=== PATIENT | male | born 1955 | race Caucasian/White ===

== ENCOUNTER 2023-02-10 09:52 | Outpatient (REF) | payer MEDICAID, SELFPAY ==
[2023-02-10 11:14] LABS: MANUAL DIFF FLAG NO
[2023-02-10 11:38] LABS: Basophils Percent Auto 0.5 % (0-2); Eosinophils Absolute Auto 0.1 X10*3/uL (0.0-0.4); Eosinophils Percent Auto 1.2 % (0-4); Hematocrit 46.1 % (42.0-52.0); Hemoglobin 14.9 g/dl (14.0-18.0); Imm Gran Abs Auto 0.02 X10*3/uL (0.00-0.03); Imm Gran Pct Auto 0.3 % (0.0-0.4); Lymphocytes Absolute Auto 1.9 X10*3/uL (1.2-4.9); Mean Corpuscular HGB Conc 32.3 g/dl (31.0-36.0); Mean Corpuscular Hemoglobin 28.1 pg (27.0-33.0); Mean Corpuscular Volume 86.8 fL (80.0-98.0); Mean Platelet Volume 11.8 fL (9.4-12.4); Monocytes Absolute Auto 0.5 X10*3/uL (0.1-1.2); Monocytes Percent Auto 7.5 % (2-11); Neutrophils Absolute Auto 4.1 x10*3/uL (2.0-8.3); Neutrophils Percent Auto 61.5 % (45-73); Platelet Count 159 X10*3/uL (160-400); Red Blood Count 5.31 X10*6/uL (4.60-5.80); Red Cell Distribution Width 14.5 % (11.0-16.0); White Blood Count 6.6 X10*3/uL (4.8-10.8)
[2023-02-10 12:30] LABS: Alanine Aminotransferase 9 U/L (0-40); Alkaline Phosphatase 127 U/L (39-117); Anion Gap 12 (12-20); Aspartate Amino Transferase 21 U/L (5-37); Bilirubin Total 0.5 mg/dL (0.0-1.0); Blood Urea Nitrogen 16 mg/dL (9-16); Carbon Dioxide 24 mmol/L (22-29); Chloride 111 mmol/L (96-108); Cholesterol 244 mg/dL; Estimated Glomerular Filt Rate > 60; Glucose Fasting 80 mg/dL (60-99); HDL Cholesterol 40 mg/dL; LDL Cholesterol Calculated 173 mg/dl; Potassium 5.5 mmol/L (3.3-5.1); Sodium 141 mmol/L (135-145); Total Protein 7.2 g/dL (6.5-8.0); Triglycerides 158 mg/dL
[2023-02-10 12:39] LABS: TSH reflex Free T4 1.45 uIU/mL (0.32-4.0)
[2023-02-20 21:09] LABS: PSA, Ultra Sensitive 1.99 ng/mL
== END 2023-02-10 09:53 | disposition home or self-care (01) ==
LOC: HO.WFDLDS 09:52
PROVIDERS: Visit Provider Nurse Practitioner Family
DX: Z00.00 Encounter for general adult medical examination without abnormal findings (principal)
CPT/HCPCS: 36415; 80053; 80061; 84153; 84443; 85025

== ENCOUNTER 2023-03-05 11:26 | Outpatient (REF) | payer MEDICAID, SELFPAY ==
[2023-03-05 14:00] LABS: Potassium 4.4 mmol/L (3.3-5.1)
== END 2023-03-05 11:27 | disposition home or self-care (01) ==
LOC: HO.WFDLDS 11:26
PROVIDERS: Visit Provider Nurse Practitioner Family
DX: E87.5 Hyperkalemia (principal)
CPT/HCPCS: 36415; 84132

== ENCOUNTER 2023-04-07 15:01 | Outpatient (AMB) | payer MEDICAID, SELFPAY ==
--- NOTE | 2023-04-07 15:02 | MHC.PC.OV ---
Vital Signs 04/07/23 15:05 Height 6 ft Weight 170 lb BMI 23.1 BP 120/70 Blood Pressure Location Lt brachial Position Sitting Pulse 99 Pulse Source Pulse Oximeter Pulse Oximetry (%) 98 Oxygen Delivery Method Room Air Intake Visit Reasons: 03/24/23 [facility], bowel obstruction Intake Note: pt is here for ED f/u from 03/24/23 [facility] for bowel obstruction Telecommunications Field Technician Required: No Allergies No Known Allergies Allergy (Verified 04/07/23 15:03) Tobacco use date assessed: 01/14/23 Fall risk assessment: No Falls in past year Last assessed Fall Risk: 04/07/23 Dental Screening Dental Screen Date: 04/07/23 Did you have a dental visit in the last 12 months?: No Did you have a dental problem in the last 6 months where you did not have access to dental care?: No Was dental information given to patient?: Patient declined HPI HPI Comments History of Present Illness Details 67-year-old male, accompained by [facility] staff, presents for follow-up visit. He was admitted at [facility] between 03/18/2023 and 03/23/2023 for nausea, vomiting, concern for small-bowel obstruction, stercoral colitis, and newly diagnosed large type 4 paraesophageal hernia. Labs were unremarkable CT abdomen and pelvis without contrast revealed the followin. Small-bowel obstruction 2. Fecal impaction/stercoral colitis 3. Small punctuate nonobstructing calculus in the left upper pole 4. Nonspecific fat stranding surrounding the bilateral adrenal glands, left greater than right 5. Surgical clip along the inferior tip of the right hepatic lobe, which may represent a dropped clip 6. Infrarenal saccular aneurysms Hospital Course: 67-year-old with history of his schizoaffective disorder a previous TIA, fusiform cerebral aneurysm, and depression who presented 03/18 with nausea and vomiting and concern for small-bowel obstruction, stercoral colitis and a new newly diagnosed large type 4 paraesophageal hernia. The patient was admitted to surgery for trial of conservative management with bowel rest and decompression. Thoracic surgery was consulted for the paraesophageal hernia who recommended no need for emergent surgery. DVT prophylaxis was maintained throughout hospital stay. Castrografin was admitted per small bowel protocol. Follow-up imaging did not initially revealed contrast within the colon but patient had return of bowel function. NG tube was discontinued and diet was advanced to clears. As bowel function continued, diet was subsequently advanced as tolerated. Was tolerating a regular diet the patient was ready for discharge home. Upon discharge, the patient was in stable clinical condition. He was voiding, and tolerating a diet without nausea or vomiting. PT evaluated the patient prior to discharge and cleared him to return to his detention. He was sent home with instructions to follow-up within 1-2 weeks with thoracic surgery and in 2-3 weeks with his primary care provider. He denies acute symptoms. He reports intermittent pain to his upper esophagus. [facility] Medical History Heart murmur Hepatitis Surgical History History of cholecystectomy Family History Mother Cardiovascular disease Father Cardiovascular disease Social History Housing: Assisted Living Facility Alcohol intake: never Patient Tobacco Use Status: Never used Tobacco e-Cigarette/Vaping Use: Never Used service: Yes Current occupational status: disabled Current occupation: [employer] Cognitive needs: Yes Hearing needs: Yes Vision needs: Yes Questionnaire Thrive Questionnaire Date Thrive assessed: 01/14/23 LYRIC-7 AMB Questionnaire LYRIC-7 Date LYRIC - 7 assessed: 01/14/23 Source: Developed by Drs. Gonzalez Guillory, Radha Godwin, Dash Barlow and colleagues, with an educational carolynn from [employer]. Review of Systems Const Details: Const Denies chills, Denies fatigue, Denies fever(s), Denies headache(s) and Denies weakness ENT Denies dizziness and Denies headache(s) Card Denies chest pain, Denies lightheadedness, Denies dyspnea and Denies other (Palpitations) Resp Denies cough, Denies dyspnea, Denies wheezing and Denies other ( shortness of breath) GI Denies abdominal pain, Denies melena, Denies hematochezia, Denies change in bowel habits, Denies dyspepsia and Denies nausea Denies hematuria and Denies dysuria Musc Denies abnormal gait, Denies myalgias, Denies arthralgias, Denies numbness and Denies tingling Skin/Breast Denies rash, Denies unusual bruising and Denies wounds Neuro Denies abnormal gait, Denies dizziness, Denies headache(s), Denies memory loss, Denies numbness, Denies Sensory deficit (Neuro), Denies tingling and Denies weakness Psych Denies anxiety and Denies depression Endo Denies fatigue Aller/Immun Denies wheezing Physical exam (Primary Care) Vital Signs: Last Vital Signs Pulse 99 04/07/23 15:05 BP 120/70 04/07/23 15:05 Pulse Ox 98 04/07/23 15:05 Oxygen Delivery Method Room Air 04/07/23 15:05 BMI result Body Mass Index 23.1 Tobacco/Smoking Status: Tobacco use Status Tobacco use date assessed 01/14/23 04/07/23 15:04 Patient Tobacco Use Status Never used Tobacco 04/07/23 15:04 e-Cigarette/Vaping Use Never Used 04/07/23 15:04 Thrive Assessment: Date of Thrive Assessment Date Thrive assessed 01/14/23 04/07/23 15:04 Const Other: General: no acute distress and well developed Nutritional Appearance: well nourished Orientation/consciousness: patient oriented x3 HENMT Head: Yes normocephalic and Yes atraumatic Eyes General: appearance normal, both eyes and all related structures Pupils: Equal, round and reactive pupils present EOM: EOMs intact bilaterally Resp Effort & Inspection: normal respiratory effort Auscultation: clear to auscultation bilaterally Cardio Rate: regular rate Rhythm: regular rhythm Heart sounds: S1 normal heart sound present, S2 normal heart sound present, no gallops, no murmurs and no rubs GI Palpation (GI): No Abdominal aortic bruit present, Soft to palpation, nontender, No hepatosplenomegaly present and No Rebound tenderness present Auscultation: normal bowel sounds General: Yes no CVA tenderness Back/Spine/Pelvis Back: no CVA tenderness Cervical Spine: cervical ROM normal and No Cervical spine tenderness Thoracic/Lumbar Spine: thoraco-lumbar ROM normal, No pain with thoraco-lumbar ROM, No thoracic spinal tenderness and No lumbar spinal tenderness Extrem General: Yes normal to inspection, No edema and No calf tenderness Skin General: warm and dry. Normal skin color. Normal skin turgor Lesions: no lesions Rashes: no rashes Trauma: no lacerations or abrasions Wounds: no wounds Nails: normal Neuro General: patient oriented x3, gait normal and no focal neuro deficit Cranial nerves: Yes Equal, round and reactive pupils present Cognition (Neuro): normal cognition Gait exam (Neuro): Normal gait present Sensory Exam: No Sensory deficit (Neuro) Psych Affect: normal affect Assessment and Plan Assessment & Plan (1) Hospital discharge follow-up: Code(s): Z09 - Encounter for follow-up examination after completed treatment for conditions other than malignant neoplasm Plan: No acute symptoms Take medications as prescribed Adequate hydration encouraged Continue to follow-up with GI and surgery as planned Follow-up with PCP as planned or return sooner with symptoms or concerns Verbalized understanding and agreed with treatment plan. Coding Level of Care Code Est Pt Level 3 (84978) Diagnoses Hospital discharge follow-up Z09 Time Spent (min) 25
[2023-04-07 15:05] VITALS: BP 120/70; PULSE 99; O2SAT 98; BMI 23.1
== END 2023-04-07 15:46 | disposition home or self-care (01) ==
PROVIDERS: PCP Nurse Practitioner Family; Visit Provider Nurse Practitioner Family
DX: Z09 Encounter for follow-up examination after completed treatment for conditions other than malignant neoplasm (principal)
CPT/HCPCS: 99213

== ENCOUNTER 2023-04-22 09:52 | Outpatient (AMB) | payer MEDICAID, SELFPAY ==
[2023-04-22 10:04] VITALS: BP 106/74; PULSE 94; RESP 12; TEMP 36.3; O2SAT 99; BMI 23.5
--- NOTE | 2023-04-22 10:04 | MHC.PC.OV ---
Vital Signs 04/22/23 10:04 Height 6 ft Weight 173 lb BMI 23.5 BP 106/74 Blood Pressure Location Rt brachial Position Sitting Respiration 12 Pulse 94 Pulse Source Pulse Oximeter Temp 97.4 F Temp Source Temporal Artery Scan Pulse Oximetry (%) 99 Oxygen Delivery Method Room Air Intake Visit Reasons: 3 mos MH disorder, labs review Wire Weaver Required: No Accompanied by: Card Brusher Allergies No Known Allergies Allergy (Verified 04/22/23 11:09) Medication List - Last Reconciled 04/22/23 by Luisana Cloud CNP clozapine 500 mg PO DIRECTED docusate sodium (Colace) 100 mg PO BID hydroxyzine HCl 50 mg PO BID oxcarbazepine (Trileptal) 150 mg PO BID polyethylene glycol 3350 (Miralax) 17 grams PO DAILY Tobacco use date assessed: 01/14/23 Fall risk assessment: 1 Fall in past year Last assessed Fall Risk: 04/22/23 Dental Screening Dental Screen Date: 04/22/23 Did you have a dental visit in the last 12 months?: No Did you have a dental problem in the last 6 months where you did not have access to dental care?: No Was dental information given to patient?: Yes HPI HPI Comments History of Present Illness Details 67-year-old male presents with [facility] manager case management for mood disorder and recent lab reviews follow-up. He has PMH significant for schizophrenia, bipolar, anxiety, depression, and constipation. He admits to taking his medications as prescribed. He is followed by Dr. Abebe, psychiatrist who manages all of his medications. He sees his psychiatrist every 2 moths. He notes she is not currently followed by a therapist and requests a referral to establish care. He notes he was told by [facility] that he has an hatial hernia that may be the cause of his chronic constipation. He states he was told he requires surgery to reduce the hernia. He was referred to [facility] GI. He notes that he has been having regular BM for the past 2 weeks. No acute symptoms today. [facility] Medical History (Updated 04/22/23 @ 11:14 by Luisana Cloud CNP) Heart murmur Hepatitis Hiatal hernia Surgical History History of cholecystectomy Family History Mother Cardiovascular disease Father Cardiovascular disease Other Mental health disorder Substance abuse Social History Housing: Assisted Living Facility Alcohol intake: never Patient Tobacco Use Status: Former Tobacco user Tobacco use type: Cigarette e-Cigarette/Vaping Use: Never Used service: Yes Current occupational status: disabled Current occupation: [employer] Cognitive needs: Yes Hearing needs: Yes Vision needs: Yes Questionnaire PHQ-9 Over the last 2 weeks, how often have you been bothered by any of the following problems? 1. Little interest or pleasure in doing things: not at all 2. Feeling down, depressed, or hopeless: several days 3. Trouble falling or staying asleep, or sleeping too much: several days 4. Feeling tired or having little energy: not at all 5. Poor appetite or overeating: not at all 6. Feeling bad about yourself - or that you are a failure or have let yourself or your family down: more than half the days 7. Trouble concentrating on things, such as reading the newspaper or watching television: not at all 8. Moving or speaking so slowly that other people could have noticed. Or the opposite - being so fidgety or restless that you have been moving around a lot more than usual: not at all 9. Thoughts that you would be better off or of hurting yourself in some way: not at all Total score: 4 Depression Screening Interpretation: Negative Source: Developed by Drs. Gonzalez Guillory, Radha Godwin, Dash Barlow and colleagues, with an educational carolynn from [employer]. Thrive Questionnaire Date Thrive assessed: 04/22/23 I am a: Patient What is your living situation today?: I have a steady place to live Within the past 12 months, did the food you bought not last and you didn't have the money to get more?: Never true Within the past 12 months, did you worry whether your food would run out before you got money to buy more?: Never true Do you have trouble paying for medicines?: No Do you have trouble getting transportation to medical appointments?: No Do you have trouble paying your heating and electricity bill?: No Do you have trouble taking care of your child, family member or friend?: No Do you have trouble with day-to-day activities such as bathing, preparing meals, shopping, managing finances, etc.?: No Are you currently unemployed and looking for a job?: No Are you interested in more education?: No Please select the resources that you would like help with: None Currently or been in a relationship where the following occur: no concerns reported LYRIC-7 AMB Questionnaire LYRIC-7 Date LYRIC - 7 assessed: 04/22/23 Feeling nervous, anxious, or on edge: 1 = Several days Not being able to stop or control worryin = More than half the days Worrying too much about different things: 2 = More than half the days Trouble relaxin = More than half the days Being so restless that it is hard to sit still: 2 = More than half the days Becoming easily annoyed or irritable: 1 = Several days Feeling afraid as if something awful might happen: 1 = Several days Total LYRIC-7 score (0-4 normal; 5-9 mild; 10-14 moderate; 15-21 severe): 11 Source: Developed by Drs. Gonzalez Guillory, Radha Godwin, Dash Barlow and colleagues, with an educational carolynn from [employer]. Review of Systems Const Details: Const Denies chills, Denies fatigue, Denies fever(s), Denies headache(s) and Denies weakness ENT Denies dizziness and Denies headache(s) Card Denies chest pain, Denies lightheadedness, Denies dyspnea and Denies other (Palpitations) Resp Denies cough, Denies dyspnea, Denies wheezing and Denies other ( shortness of breath) GI Denies abdominal pain, Denies melena, Denies hematochezia, Denies change in bowel habits, Denies dyspepsia and Denies nausea Denies hematuria and Denies dysuria Musc Denies abnormal gait, Denies myalgias, Denies arthralgias, Denies numbness and Denies tingling Skin/Breast Denies rash, Denies unusual bruising and Denies wounds Neuro Denies abnormal gait, Denies dizziness, Denies headache(s), Denies memory loss, Denies numbness, Denies Sensory deficit (Neuro), Denies tingling and Denies weakness Psych Denies anxiety, Denies depression, Denies memory loss Endo Denies cold intolerance, Denies fatigue, Denies heat intolerance, Denies polydipsia and Denies polyuria Aller/Immun Denies wheezing Physical exam (Primary Care) Vital Signs: Last Vital Signs Temp 97.4 F 04/22/23 10:04 Pulse 94 04/22/23 10:04 Resp 12 04/22/23 10:04 BP 106/74 04/22/23 10:04 Pulse Ox 99 04/22/23 10:04 Oxygen Delivery Method Room Air 04/22/23 10:04 BMI result Body Mass Index 23.5 Tobacco/Smoking Status: Tobacco use Status Tobacco use date assessed 01/14/23 04/22/23 10:21 Patient Tobacco Use Status Former Tobacco user 04/22/23 10:21 Tobacco use type Cigarette 04/22/23 10:21 e-Cigarette/Vaping Use Never Used 04/22/23 10:21 PHQ-9: PHQ-9 Score PHQ-9: Total score 4 04/22/23 10:21 Depression Screening Interpretation: Negative Thrive Assessment: Date of Thrive Assessment Date Thrive assessed 04/22/23 04/22/23 10:21 Currently or been in a relationship where the following occur: no concerns reported Const Other: General: no acute distress and well developed Nutritional Appearance: well nourished Orientation/consciousness: patient oriented x3 HENMT Head: Yes normocephalic and Yes atraumatic Eyes General: appearance normal, both eyes and all related structures Pupils: Equal, round and reactive pupils present EOM: EOMs intact bilaterally Resp Effort & Inspection: normal respiratory effort Auscultation: clear to auscultation bilaterally Cardio Rate: regular rate Rhythm: regular rhythm Heart sounds: S1 normal heart sound present, S2 normal heart sound present, no gallops, no murmurs and no rubs GI Palpation (GI): No Abdominal aortic bruit present, Soft to palpation, nontender, No hepatosplenomegaly present and No Rebound tenderness present Auscultation: normal bowel sounds General: Yes no CVA tenderness Back/Spine/Pelvis Back: no CVA tenderness Cervical Spine: cervical ROM normal and No Cervical spine tenderness Thoracic/Lumbar Spine: thoraco-lumbar ROM normal, No pain with thoraco-lumbar ROM, No thoracic spinal tenderness and No lumbar spinal tenderness Extrem General: Yes normal to inspection, No edema and No calf tenderness Skin General: warm and dry. Normal skin color. Normal skin turgor Lesions: no lesions Rashes: no rashes Trauma: no lacerations or abrasions Wounds: no wounds Nails: normal Neuro General: patient oriented x3, gait normal and no focal neuro deficit Cranial nerves: Yes Equal, round and reactive pupils present Cognition (Neuro): normal cognition Gait exam (Neuro): Normal gait present Sensory Exam: No Sensory deficit (Neuro) Psych Appearance: grossly normal Affect: normal affect Attitude: cooperative Thought process: Normal thought process present Assessment and Plan Assessment & Plan (1) Anxiety: Code(s): F41.9 - Anxiety disorder, unspecified Plan: PHQ-9 score is normal, LYRIC-7 score revealed moderate anxiety Continue with current treatment regimen Continue to follow up with psychiatrist as planned He met with the community navigator who provided resources to help him connect to a therapist Follow-up in 4 months or return sooner with new or worsening symptoms Verbalized understanding and agreed with treatment plan (2) Depression: Code(s): F32.A - Depression, unspecified Plan: As above (3) Schizoaffective disorder: Code(s): F25.9 - Schizoaffective disorder, unspecified Qualifiers: Schizoaffective disorder type: bipolar Qualified Code(s): F25.0 - Schizoaffective disorder, bipolar type Plan: As above (4) Hyperlipidemia: Code(s): E78.5 - Hyperlipidemia, unspecified Plan: Recent lab results reviewed with the patient Slight elevation and triglyceride, total cholesterol, and LDL. HDL is normal Advised to limit foods high in saturated fat and avoid foods high trans fat Routine exercise encouraged Verbalized understanding and agreed with treatment plan. Coding Level of Care Code Est Pt Level 3 (72904) Diagnoses Anxiety F41.9 Depression F32.A Schizoaffective disorder F25.0 Schizoaffective disorder type: bipolar Hyperlipidemia E78.5 Time Spent (min) 25
== END 2023-04-22 11:23 | disposition home or self-care (01) ==
PROVIDERS: Visit Provider Nurse Practitioner Family
DX: F41.9 Anxiety disorder, unspecified (principal); F32.A Depression, unspecified; F25.0 Schizoaffective disorder, bipolar type; E78.5 Hyperlipidemia, unspecified
CPT/HCPCS: 99213

== ENCOUNTER 2023-05-14 11:52 | Outpatient (AMB) | payer MEDICAID, SELFPAY ==
--- NOTE | 2023-05-14 11:55 | MHC.PC.OV ---
Vital Signs 05/14/23 11:56 Height 6 ft Weight 178 lb BMI 24.1 BP 114/64 Blood Pressure Location Rt brachial Position Sitting Respiration 12 Pulse 101 H Pulse Source Pulse Oximeter Temp 97.8 F Temp Source Temporal Artery Scan Pulse Oximetry (%) 99 Oxygen Delivery Method Room Air Intake Visit Reasons: Medication/Bowel Management Intake Note: therapeutic program worker states that this appointment was scheduled to to patient stating he hadn't had a bowel movement but since appointment patient has had bowel movements. therapeutic program worker is unsure if patient needs anything to take for moments when he cannot pass a bowel movement and is looking for opinion on if he should have one prescribed. Manager Architecture Required: No Accompanied by: marriage and family social worker Allergies No Known Allergies Allergy (Verified 05/14/23 12:34) Medication List - Last Reconciled 05/14/23 by Luisana Cloud CNP clozapine 500 mg PO DIRECTED docusate sodium (Colace) 100 mg PO BID hydroxyzine HCl 50 mg PO BID oxcarbazepine (Trileptal) 150 mg PO BID polyethylene glycol 3350 (Miralax) 17 grams PO DAILY Tobacco use date assessed: 01/14/23 Fall risk assessment: No Falls in past year Last assessed Fall Risk: 05/14/23 Dental Screening Dental Screen Date: 05/14/23 Did you have a dental visit in the last 12 months?: No Did you have a dental problem in the last 6 months where you did not have access to dental care?: No Was dental information given to patient?: Yes HPI HPI Comments History of Present Illness Details 67-year-old male presents with [facility] rehabilitation case coordinator for an appointment that was scheduled for lack of bowel movement. He has since been having regular bowel movements. He was seen 3 weeks ago and reports regular bowel movements for the past 2 weeks. He notes he has been having regular bowel movements for the past 4-5 weeks. He denies hard stools or straining with defecation. He is followed by [facility] and notes he has an appointment at the end of this month. [facility] Medical History Hiatal hernia Heart murmur Hepatitis Surgical History History of cholecystectomy Family History (Updated 05/14/23 @ 12:06 by Martine Hardin MA) Mother Cardiovascular disease Father Cardiovascular disease Brother No problems noted. Other Mental health disorder Substance abuse Social History Housing: Assisted Living Facility Alcohol intake: never Patient Tobacco Use Status: Former Tobacco user Tobacco use type: Cigarette e-Cigarette/Vaping Use: Never Used service: Yes Current occupational status: disabled Current occupation: [employer] Cognitive needs: No Hearing needs: No Vision needs: No Questionnaire Thrive Questionnaire Date Thrive assessed: 04/22/23 LYRIC-7 AMB Questionnaire LYRIC-7 Date LYRIC - 7 assessed: 04/22/23 Source: Developed by Drs. Gonzalez Guillory, Radha Godwin, Dash Barlow and colleagues, with an educational carolynn from [employer]. Review of Systems Const Details: Const Denies chills, Denies fatigue, Denies fever(s), Denies headache(s) and Denies weakness ENT Denies dizziness and Denies headache(s) Card Denies chest pain, Denies lightheadedness, Denies dyspnea and Denies other (Palpitations) Resp Denies cough, Denies dyspnea, Denies wheezing and Denies other ( shortness of breath) GI Denies abdominal pain, Denies melena, Denies hematochezia, Denies change in bowel habits, Denies dyspepsia and Denies nausea Denies hematuria and Denies dysuria Musc Denies abnormal gait, Denies myalgias, Denies arthralgias, Denies numbness and Denies tingling Skin/Breast Denies rash, Denies unusual bruising and Denies wounds Neuro Denies abnormal gait, Denies dizziness, Denies headache(s), Denies memory loss, Denies numbness, Denies Sensory deficit (Neuro), Denies tingling and Denies weakness Psych Denies anxiety, Denies depression, Denies memory loss Endo Denies cold intolerance, Denies fatigue, Denies heat intolerance, Denies polydipsia and Denies polyuria Aller/Immun Denies wheezing Physical exam (Primary Care) Vital Signs: Last Vital Signs Temp 97.8 F 05/14/23 11:56 Pulse 101 H 05/14/23 11:56 Resp 12 05/14/23 11:56 BP 114/64 05/14/23 11:56 Pulse Ox 99 05/14/23 11:56 Oxygen Delivery Method Room Air 05/14/23 11:56 BMI result Body Mass Index 24.1 Tobacco/Smoking Status: Tobacco use Status Tobacco use date assessed 01/14/23 05/14/23 12:04 Patient Tobacco Use Status Former Tobacco user 05/14/23 12:04 Tobacco use type Cigarette 05/14/23 12:04 e-Cigarette/Vaping Use Never Used 05/14/23 12:04 Thrive Assessment: Date of Thrive Assessment Date Thrive assessed 04/22/23 05/14/23 12:04 Const Other: General: no acute distress and well developed Nutritional Appearance: well nourished Orientation/consciousness: patient oriented x3 HENMT Head: Yes normocephalic and Yes atraumatic Eyes General: appearance normal, both eyes and all related structures Pupils: Equal, round and reactive pupils present EOM: EOMs intact bilaterally Resp Effort & Inspection: normal respiratory effort Auscultation: clear to auscultation bilaterally Cardio Rate: regular rate Rhythm: regular rhythm Heart sounds: S1 normal heart sound present, S2 normal heart sound present, no gallops, no murmurs and no rubs GI Palpation (GI): No Abdominal aortic bruit present, Soft to palpation, nontender, No hepatosplenomegaly present and No Rebound tenderness present Auscultation: normal bowel sounds General: Yes no CVA tenderness Back/Spine/Pelvis Back: no CVA tenderness Cervical Spine: cervical ROM normal and No Cervical spine tenderness Thoracic/Lumbar Spine: thoraco-lumbar ROM normal, No pain with thoraco-lumbar ROM, No thoracic spinal tenderness and No lumbar spinal tenderness Extrem General: Yes normal to inspection, No edema and No calf tenderness Skin General: warm and dry. Normal skin color. Normal skin turgor Lesions: no lesions Rashes: no rashes Trauma: no lacerations or abrasions Wounds: no wounds Nails: normal Neuro General: patient oriented x3, gait normal and no focal neuro deficit Cranial nerves: Yes Equal, round and reactive pupils present Cognition (Neuro): normal cognition Gait exam (Neuro): Normal gait present Sensory Exam: No Sensory deficit (Neuro) Psych Appearance: grossly normal Affect: normal affect Attitude: cooperative Thought process: Normal thought process present Assessment and Plan Assessment & Plan (1) Constipation: Code(s): K59.00 - Constipation, unspecified Qualifiers: Constipation type: other constipation type Qualified Code(s): K59.09 - Other constipation Plan: Resolved Adequate hydration encouraged Advised to include fruits and vegetables in his diet Continue with current bowel regimen Follow-up with GI and PCP as planned Verbalized understanding and agreed with treatment plan. Coding Level of Care Code Est Pt Level 2 (67336) Diagnoses Other constipation K59.09 Constipation type: other constipation type
[2023-05-14 11:56] VITALS: BP 114/64; PULSE 101; RESP 12; TEMP 36.6; O2SAT 99; BMI 24.1
== END 2023-05-14 13:33 | disposition home or self-care (01) ==
PROVIDERS: PCP Nurse Practitioner Family; Visit Provider Nurse Practitioner Family
DX: K59.09 Other constipation (principal)
CPT/HCPCS: 99212

== ENCOUNTER 2023-09-09 11:11 | Outpatient (AMB) | payer MEDICAID, SELFPAY ==
[2023-09-09 11:13] VITALS: BP 130/84; PULSE 72; RESP 13; TEMP 36.4; O2SAT 98; BMI 23.3
--- NOTE | 2023-09-09 11:13 | MHC.PC.OV ---
Vital Signs 09/09/23 11:13 Height 6 ft Weight 171 lb 8 oz BMI 23.3 BP 130/84 Blood Pressure Location Rt brachial Position Sitting Respiration 13 Pulse 72 Pulse Source Pulse Oximeter Temp 97.6 F Temp Source Temporal Artery Scan Pulse Oximetry (%) 98 Oxygen Delivery Method Room Air Intake Visit Reasons: bilateral leg/foot swelling Intake Note: Patient states hes been experiencing the swelling for about a month. Color Laboratory Technician Required: No Accompanied by: Self / Same As Patient Allergies No Known Allergies Allergy (Verified 09/09/23 11:32) Medication List - Last Reconciled 09/09/23 by Luisana Cloud CNP clozapine 500 mg PO DIRECTED docusate sodium (Colace) 100 mg PO BID hydroxyzine HCl 50 mg PO BID oxcarbazepine (Trileptal) 150 mg PO BID polyethylene glycol 3350 (Miralax) 17 grams PO DAILY Tobacco use date assessed: 01/14/23 Last assessed Fall Risk: 09/09/23 Dental Screening Dental Screen Date: 09/09/23 Did you have a dental visit in the last 12 months?: No Did you have a dental problem in the last 6 months where you did not have access to dental care?: No Was dental information given to patient?: Yes HPI HPI Comments History of Present Illness Details 68-year-old male presents with complaints of swelling to both lower legs and feet. He notes the swelling has been present for the past 6 weeks. He noticed the swelling shortly after he started taking Trileptal. He has not taking Trileptal for the past 2 weeks due to concerns that the medication may be the cause of his swelling. He admits to consuming significant amount of salt. He notes that he walks a mile and half daily. No shortness of breath, chest pain, or dizziness/lightheadedness. He lives in a chcf and came by self today [facility] Medical History Heart murmur Hepatitis Surgical History H/O hernia repair History of cholecystectomy Family History Mother Cardiovascular disease Father Cardiovascular disease Brother No problems noted. Other Mental health disorder Substance abuse Social History Housing: Assisted Living Facility Alcohol intake: never Patient Tobacco Use Status: Former Tobacco user Tobacco use type: Cigarette e-Cigarette/Vaping Use: Never Used service: Yes Current occupational status: disabled Current occupation: [employer] Cognitive needs: No Hearing needs: No Vision needs: No Questionnaire Thrive Questionnaire Date Thrive assessed: 04/22/23 LYRIC-7 AMB Questionnaire LYRIC-7 Date LYRIC - 7 assessed: 04/22/23 Source: Developed by Drs. Gonzalez Guillory, Radha Godwin, Dash Barlow and colleagues, with an educational carolynn from [employer]. Review of Systems Const Details: Const Denies chills, Denies fatigue, Denies fever(s), Denies headache(s) and Denies weakness ENT Denies dizziness and Denies headache(s) Card Denies chest pain, Denies lightheadedness, Denies dyspnea and Denies other (Palpitations) Resp Denies cough, Denies dyspnea, Denies wheezing and Denies other ( shortness of breath) GI Denies abdominal pain, Denies melena, Denies hematochezia, Denies change in bowel habits, Denies dyspepsia and Denies nausea Denies hematuria and Denies dysuria Musc Denies abnormal gait, Denies myalgias, Denies arthralgias, Denies numbness and Denies tingling Skin/Breast Reports as per HPI Neuro Denies abnormal gait, Denies dizziness, Denies headache(s), Denies memory loss, Denies numbness, Denies Sensory deficit (Neuro), Denies tingling and Denies weakness Psych Denies anxiety, Denies depression, Denies memory loss Endo Denies cold intolerance, Denies fatigue, Denies heat intolerance, Denies polydipsia and Denies polyuria Aller/Immun Denies wheezing Physical exam (Primary Care) Vital Signs: Last Vital Signs Temp 97.6 F 09/09/23 11:13 Pulse 72 09/09/23 11:13 Resp 13 09/09/23 11:13 BP 130/84 09/09/23 11:13 Pulse Ox 98 09/09/23 11:13 Oxygen Delivery Method Room Air 09/09/23 11:13 BMI result Body Mass Index 23.3 Tobacco/Smoking Status: Tobacco use Status Tobacco use date assessed 01/14/23 09/09/23 11:23 Patient Tobacco Use Status Former Tobacco user 09/09/23 11:23 Tobacco use type Cigarette 09/09/23 11:23 e-Cigarette/Vaping Use Never Used 09/09/23 11:23 Thrive Assessment: Date of Thrive Assessment Date Thrive assessed 04/22/23 09/09/23 11:23 Const Other: General: no acute distress and well developed Nutritional Appearance: well nourished Orientation/consciousness: patient oriented x3 HENMT Head: Yes normocephalic and Yes atraumatic Eyes General: appearance normal, both eyes and all related structures Pupils: Equal, round and reactive pupils present EOM: EOMs intact bilaterally Resp Effort & Inspection: normal respiratory effort Auscultation: clear to auscultation bilaterally Cardio Rate: regular rate Rhythm: regular rhythm Heart sounds: S1 normal heart sound present, S2 normal heart sound present, no gallops, no murmurs and no rubs GI Palpation (GI): No Abdominal aortic bruit present, Soft to palpation, nontender, No hepatosplenomegaly present and No Rebound tenderness present Auscultation: normal bowel sounds General: Yes no CVA tenderness Back/Spine/Pelvis Back: no CVA tenderness Cervical Spine: cervical ROM normal and No Cervical spine tenderness Thoracic/Lumbar Spine: thoraco-lumbar ROM normal, No pain with thoraco-lumbar ROM, No thoracic spinal tenderness and No lumbar spinal tenderness Extrem General: Yes normal to inspection, No edema and No calf tenderness 1+ edema noted to both lower extremities, from calves to feet, no erythema or overt trauma/injury, + DP/PT pulses, CMS WNL Skin General: warm and dry. Normal skin color. Normal skin turgor Lesions: no lesions Rashes: no rashes Trauma: no lacerations or abrasions Wounds: no wounds Nails: normal Neuro General: patient oriented x3, gait normal and no focal neuro deficit Cranial nerves: Yes Equal, round and reactive pupils present Cognition (Neuro): normal cognition Gait exam (Neuro): Normal gait present Sensory Exam: No Sensory deficit (Neuro) Psych Appearance: grossly normal Affect: normal affect Attitude: cooperative Thought process: Normal thought process present Assessment and Plan Assessment & Plan (1) Bilateral lower extremity edema: Code(s): R60.0 - Localized edema Plan: Six weeks of swelling to both lower legs 1+ edema noted to both lower extremities, from calves to feet, no erythema or overt trauma/injury, + DP/PT pulses, CMS WNL Likely due to prolonged standing/walking Kidney disease or peripheral vascular disease also possible Labs ordered. Will review results and make changes as needed Low-sodium diet encouraged Advised to talk to his psychiatrist regarding restarting Trileptal Advised to avoid prolonged standing and to elevate his bilateral lower extremity to reduce swelling Encouraged to get fasting lipid panel blood work done before his next visit Follow-up in 2 weeks for bilateral lower extremity edema and hyperlipidemia or return sooner with worsening or new signs and symptoms Verbalized understanding and agreed with treatment plan Orders: Orders Lipid Panel 2 Weeks E78.5 - Hyperlipidemia, unspecified Basic Metabolic Panel Today R60.0 - Localized edema Complete Blood Count no Diff Today R60.0 - Localized edema Coding Level of Care Code Est Pt Level 3 (12430) Diagnoses Bilateral lower extremity edema R60.0
== END 2023-09-09 12:44 | disposition home or self-care (01) ==
PROVIDERS: PCP Nurse Practitioner Family; Visit Provider Nurse Practitioner Family
DX: R60.0 Localized edema (principal)
CPT/HCPCS: 99213

== ENCOUNTER 2023-09-09 11:57 | Outpatient (REF) | payer MEDICAID, SELFPAY | END 2023-09-09 11:58 | disposition home or self-care (01) | LOC: HO.WFDLDS 11:57 | PROVIDERS: Visit Provider Nurse Practitioner Family | DX: R60.0 Localized edema (principal) | CPT/HCPCS: 36415; 80048; 85027 ==

== ENCOUNTER 2023-09-22 10:27 | Outpatient (AMB) | payer MEDICAID, SELFPAY ==
--- NOTE | 2023-09-22 10:28 | A.OFFPC_ITS ---
Vital Signs 09/22/23 10:29 Height 6 ft Weight 166 lb 4 oz BMI 22.5 BP 118/66 Blood Pressure Location Rt brachial Position Sitting Respiration 13 Pulse 68 Pulse Source Pulse Oximeter Temp 97.8 F Temp Source Temporal Artery Scan Pulse Oximetry (%) 99 Oxygen Delivery Method Room Air Intake Visit Reasons: 2 wks BLE edema, HLD Chain Mender Required: No Accompanied by: Photography Colorist Allergies No Known Allergies Allergy (Verified 09/22/23 10:53) Medication List - Last Reconciled 09/22/23 by Luisana Cloud CNP docusate sodium (Colace) 100 mg PO BID hydroxyzine HCl 50 mg PO BID oxcarbazepine (Trileptal) 150 mg PO BID polyethylene glycol 3350 (Miralax) 17 grams PO DAILY psyllium husk (Metamucil) 17 grams PO DAILY quetiapine 200 mg PO DAILY Tobacco use date assessed: 01/14/23 Fall risk assessment: No Falls in past year Last assessed Fall Risk: 09/22/23 Dental Screening Dental Screen Date: 09/22/23 Did you have a dental visit in the last 12 months?: No Did you have a dental problem in the last 6 months where you did not have access to dental care?: No Was dental information given to patient?: Patient has dentist HPI HPI Comments History of Present Illness Details 68-year-old male, accompanied by group h [facility] staff, presents for bilaterally lower extremity and hyperlipidemia follow-up He admits to taking his medications as prescribed without adverse reactions He notes that he has been consuming low-salt diet and avoiding prolonged standing and tight fitted socks He states that the swelling to his ankles and feet has resolved He offers no complaints and denies acute symptoms at this time Recent labs revealed normal kidney functions Recent RBC and H&H were slightly low, 4.38 and 12.4/37.9 respectively He did not get lipid panel blood work done [facility] Medical History Heart murmur Hepatitis Surgical History H/O hernia repair History of cholecystectomy Family History Mother Cardiovascular disease Father Cardiovascular disease Brother No problems noted. Other Mental health disorder Substance abuse Social History Housing: Assisted Living Facility Alcohol intake: never Patient Tobacco Use Status: Former Tobacco user Tobacco use type: Cigarette e-Cigarette/Vaping Use: Never Used service: Yes Current occupational status: disabled Current occupation: [employer] Cognitive needs: No Hearing needs: No Vision needs: No Questionnaire Thrive Questionnaire Date Thrive assessed: 04/22/23 LYRIC-7 AMB Questionnaire LYRIC-7 Date LYRIC - 7 assessed: 04/22/23 Source: Developed by Drs. Gonzalez Guillory, Radha Godwin, Dash Barlow and colleagues, with an educational carolynn from [employer]. Review of Systems Const Details: Const Denies chills, Denies fatigue, Denies fever(s), Denies headache(s) and Denies weakness ENT Denies dizziness and Denies headache(s) Card Denies chest pain, Denies lightheadedness, Denies dyspnea and Denies other (Palpitations) Resp Denies cough, Denies dyspnea, Denies wheezing and Denies other ( shortness of breath) GI Denies abdominal pain, Denies melena, Denies hematochezia, Denies change in bowel habits, Denies dyspepsia and Denies nausea Denies hematuria and Denies dysuria Musc Denies abnormal gait, Denies myalgias, Denies arthralgias, Denies numbness and Denies tingling Skin/Breast Denies rash, Denies unusual bruising and Denies wounds Neuro Denies abnormal gait, Denies dizziness, Denies headache(s), Denies memory loss, Denies numbness, Denies Sensory deficit (Neuro), Denies tingling and Denies weakness Psych Denies anxiety, Denies depression, Denies memory loss Endo Denies cold intolerance, Denies fatigue, Denies heat intolerance, Denies polydipsia and Denies polyuria Aller/Immun Denies wheezing Physical exam (Primary Care) Vital Signs: Last Vital Signs Temp 97.8 F 09/22/23 10:29 Pulse 68 09/22/23 10:29 Resp 13 09/22/23 10:29 BP 118/66 09/22/23 10:29 Pulse Ox 99 09/22/23 10:29 Oxygen Delivery Method Room Air 09/22/23 10:29 BMI result Body Mass Index 22.5 Tobacco/Smoking Status: Tobacco use Status Tobacco use date assessed 01/14/23 09/22/23 10:40 Patient Tobacco Use Status Former Tobacco user 09/22/23 10:40 Tobacco use type Cigarette 09/22/23 10:40 e-Cigarette/Vaping Use Never Used 09/22/23 10:40 Thrive Assessment: Date of Thrive Assessment Date Thrive assessed 04/22/23 09/22/23 10:40 Const Other: General: no acute distress and well developed Nutritional Appearance: well nourished Orientation/consciousness: patient oriented x3 HENMT Head: Yes normocephalic and Yes atraumatic Eyes General: appearance normal, both eyes and all related structures Pupils: Equal, round and reactive pupils present EOM: EOMs intact bilaterally Resp Effort & Inspection: normal respiratory effort Auscultation: clear to auscultation bilaterally Cardio Rate: regular rate Rhythm: regular rhythm Heart sounds: S1 normal heart sound present, S2 normal heart sound present, no gallops, no murmurs and no rubs GI Palpation (GI): No Abdominal aortic bruit present, Soft to palpation, nontender, No hepatosplenomegaly present and No Rebound tenderness present Auscultation: normal bowel sounds General: Yes no CVA tenderness Back/Spine/Pelvis Back: no CVA tenderness Cervical Spine: cervical ROM normal and No Cervical spine tenderness Thoracic/Lumbar Spine: thoraco-lumbar ROM normal, No pain with thoraco-lumbar ROM, No thoracic spinal tenderness and No lumbar spinal tenderness Extrem General: Yes normal to inspection, No edema and No calf tenderness Skin General: warm and dry. Normal skin color. Normal skin turgor Neuro General: patient oriented x3, gait normal and no focal neuro deficit Cranial nerves: Yes Equal, round and reactive pupils present Cognition (Neuro): normal cognition Gait exam (Neuro): Normal gait present Sensory Exam: No Sensory deficit (Neuro) Psych Appearance: grossly normal Affect: normal affect Attitude: cooperative Thought process: Normal thought process present Assessment and Plan Assessment & Plan (1) Bilateral lower extremity edema: Code(s): R60.0 - Localized edema Plan: Resolved Recent labs reviewed with the patient Normal kidney functions Low-sodium diet encouraged Continue to avoid prolonged standing and tight fitted socks Elevate bilateral lower extremity if swollen Return with signs/symptoms or concerns Verbalized understanding and agreed with the plan (2) Mild anemia: Code(s): D64.9 - Anemia, unspecified Plan: Recent RBC and H&H are slightly low, 4.38 and 12.4/37.9 respectively. MCV is normal Will recheck CBC and make changes as needed Follow-up in 2-4 weeks or return sooner with symptoms or concerns Verbalized understanding and agreed with the plan (3) Hyperlipidemia: Code(s): E78.5 - Hyperlipidemia, unspecified Plan: He has not gotten his lipid panel blood work done He is fasting and plans on getting blood work done today Advised to get blood work done and follow-up in 2-4 weeks Verbalized understanding and agreed with treatment plan Orders: Orders Complete Blood Count no Diff Today D64.9 - Anemia, unspecified Coding Level of Care Code Est Pt Level 3 (22154) Diagnoses Bilateral lower extremity edema R60.0 Mild anemia D64.9 Hyperlipidemia E78.5
[2023-09-22 10:29] VITALS: BP 118/66; PULSE 68; RESP 13; TEMP 36.6; O2SAT 99; BMI 22.5
== END 2023-09-22 11:09 | disposition home or self-care (01) ==
PROVIDERS: PCP Nurse Practitioner Family; Visit Provider Nurse Practitioner Family
DX: R60.0 Localized edema (principal); D64.9 Anemia, unspecified; E78.5 Hyperlipidemia, unspecified
CPT/HCPCS: 99213

== ENCOUNTER 2023-09-22 11:13 | Outpatient (REF) | payer MEDICAID, SELFPAY ==
[2023-09-22 14:49] LABS: Hematocrit 39.5 % (42.0-52.0); Mean Corpuscular HGB Conc 32.9 g/dl (31.0-36.0); Mean Corpuscular Volume 88.2 fL (80.0-98.0); Mean Platelet Volume 11.6 fL (9.4-12.4); Platelet Count 170 X10*3/uL (160-400); Red Blood Count 4.48 X10*6/uL (4.60-5.80)
[2023-09-22 15:14] LABS: Cholesterol 204 mg/dL (<200); HDL Cholesterol 45 mg/dL (>40); LDL Cholesterol Calculated 143 mg/dL (<100); Triglycerides 81 mg/dL (<150)
== END 2023-09-22 11:14 | disposition home or self-care (01) ==
LOC: HO.WFDLDS 11:13
PROVIDERS: Visit Provider Nurse Practitioner Family
DX: E78.5 Hyperlipidemia, unspecified (principal); D64.9 Anemia, unspecified
CPT/HCPCS: 36415; 80061; 85027

== ENCOUNTER 2024-01-29 11:16 | Outpatient (AMB) | payer MEDICAID, SELFPAY ==
[2024-01-29 11:24] VITALS: BP 122/74; PULSE 62; RESP 14; TEMP 36.6; O2SAT 99; BMI 22.4
--- NOTE | 2024-01-29 11:24 | A.OFFPC_ITS ---
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 Accompanied by: Self / Same As Patient Allergies No Known Allergies Allergy (Verified 01/29/24 11:45) Medication List - Last Reconciled 01/29/24 by Luisana Cloud CNP docusate sodium (Colace) 100 mg PO BID hydroxyzine HCl 50 mg PO BID oxcarbazepine (Trileptal) 150 mg PO BID polyethylene glycol 3350 (Miralax) 17 grams PO DAILY psyllium husk (Metamucil) 17 grams PO DAILY quetiapine 200 mg PO DAILY Tobacco use date assessed: 01/29/24 Fall risk assessment: No Falls in past year Last assessed Fall Risk: 01/29/24 Dental Screening Dental Screen Date: 09/22/23 HPI HPI Comments History of Present Illness Details 68-year-old male presents for mild anemi a and hyperlipidemia follow-up. He lives in a residential. He he is accompanied by a aids social worker who stayed in the waiting room He admits to taking his medications as prescribed without adverse reactions He offers no complaints and denies acute symptoms at this time He was admitted at [facility] on 09/30/2023 and discharged on 01/20/2024 due to SI/HI. He currently denies SI/HI. He notes that he has not seen his psychiatrist in a few months and does not know when he is seeing her next FOR[facility]LY [facility], [facility] Medical History Heart murmur Hepatitis Surgical History H/O hernia repair History of cholecystectomy Family History Mother Cardiovascular disease Father Cardiovascular disease Brother No problems noted. Other Mental health disorder Substance abuse Social History Housing: Assisted Living Facility Alcohol intake: never Patient Tobacco Use Status: Former Tobacco user Tobacco use type: Cigarette e-Cigarette/Vaping Use: Never Used service: Yes Current occupational status: disabled Current occupation: [employer] Cognitive needs: No Hearing needs: Yes Vision needs: No Questionnaire Thrive Questionnaire Date Thrive assessed: 04/22/23 LYRIC-7 AMB Questionnaire LYRIC-7 Date LYRIC - 7 assessed: 04/22/23 Source: Developed by Drs. Gonzalez Guillory, Radha Godwin, Dash Barlow and colleagues, with an educational carolynn from [employer]. Review of Systems Const Details: Const Denies chills, Denies fatigue, Denies fever(s), Denies headache(s) and Denies weakness ENT Denies dizziness and Denies headache(s) Card Denies chest pain, Denies lightheadedness, Denies dyspnea and Denies other (Palpitations) Resp Denies cough, Denies dyspnea, Denies wheezing and Denies other ( shortness of breath) GI Denies abdominal pain, Denies melena, Denies hematochezia, Denies change in bowel habits, Denies dyspepsia and Denies nausea Denies hematuria and Denies dysuria Musc Denies abnormal gait, Denies myalgias, Denies arthralgias, Denies numbness and Denies tingling Skin/Breast Denies rash, Denies unusual bruising and Denies wounds Neuro Denies abnormal gait, Denies dizziness, Denies headache(s), Denies memory loss, Denies numbness, Denies Sensory deficit (Neuro), Denies tingling and Denies weakness Psych Denies anxiety, Denies depression, Denies memory loss Endo Denies cold intolerance, Denies fatigue, Denies heat intolerance, Denies polydipsia and Denies polyuria Aller/Immun Denies wheezing Physical exam (Primary Care) Vital Signs: Last Vital Signs Temp 97.8 F 01/29/24 11:24 Pulse 62 01/29/24 11:24 Resp 14 01/29/24 11:24 BP 122/74 01/29/24 11:24 Pulse Ox 99 01/29/24 11:24 Oxygen Delivery Method Room Air 01/29/24 11:24 BMI result Body Mass Index 22.4 Tobacco/Smoking Status: Tobacco use Status Tobacco use date assessed 01/29/24 01/29/24 11:34 Patient Tobacco Use Status Former Tobacco user 01/29/24 11:31 Tobacco use type Cigarette 01/29/24 11:31 e-Cigarette/Vaping Use Never Used 01/29/24 11:31 Thrive Assessment: Date of Thrive Assessment Date Thrive assessed 04/22/23 01/29/24 11:31 Const Other: General: no acute distress and well developed Nutritional Appearance: well nourished Orientation/consciousness: patient oriented x3 HENMT Head: Yes normocephalic and Yes atraumatic Eyes General: appearance normal, both eyes and all related structures Pupils: Equal, round and reactive pupils present EOM: EOMs intact bilaterally Resp Effort & Inspection: normal respiratory effort Auscultation: clear to auscultation bilaterally Cardio Rate: regular rate Rhythm: regular rhythm Heart sounds: S1 normal heart sound present, S2 normal heart sound present, no gallops, no murmurs and no rubs GI Palpation (GI): No Abdominal aortic bruit present, Soft to palpation, nontender, No hepatosplenomegaly present and No Rebound tenderness present Auscultation: normal bowel sounds General: Yes no CVA tenderness Back/Spine/Pelvis Back: no CVA tenderness Cervical Spine: cervical ROM normal and No Cervical spine tenderness Thoracic/Lumbar Spine: thoraco-lumbar ROM normal, No pain with thoraco-lumbar ROM, No thoracic spinal tenderness and No lumbar spinal tenderness Extrem General: Yes normal to inspection, No edema and No calf tenderness Skin General: warm and dry. Normal skin color. Normal skin turgor Neuro General: patient oriented x3, gait normal and no focal neuro deficit Cranial nerves: Yes Equal, round and reactive pupils present Cognition (Neuro): normal cognition Gait exam (Neuro): Normal gait present Sensory Exam: No Sensory deficit (Neuro) Psych Appearance: grossly normal Affect: normal affect Attitude: cooperative Thought process: Normal thought process present Assessment and Plan Assessment & Plan (1) Mild anemia: Code(s): D64.9 - Anemia, unspecified Plan: Recent RBC and H&H levels in September are slightly low but improved from previous, 4.48 and 30.0/39.5 respectively, MCV is normal; consistent with normal cystic normochromic anemia Will recheck CBC and check iron profile, retic count, vitamin B12, and folate levels Tylenol ordered for pain as needed per residential request to order as needed pain medication Follow-up in 1 month for an extended physical exam or return sooner with symptoms or concerns Verbalized understanding and agreed with treatment plan (2) Hyperlipidemia: Code(s): E78.5 - Hyperlipidemia, unspecified Plan: Recent total cholesterol and LDL levels in September a slightly elevated but improved from previous, 204 and 143 respectively Advised to limit foods high in saturated fat and avoid foods high in trans fat Routine exercise encouraged Will continue to monitor Verbalized understanding and agreed with treatment plan Orders: Orders IRON PROFILE Today D64.9 - Anemia, unspecified Reticulocyte Count Today D64.9 - Anemia, unspecified PSA, Ultra Sensitive Today Z00.00 - Encounter for general adult medical examination without abnormal findings TSH reflex Free T4 Today Z00.00 - Encounter for general adult medical examination without abnormal findings Vitamin B12 and Folate Today D64.9 - Anemia, unspecified Complete Blood Count no Diff Today D64.9 - Anemia, unspecified Medications: New acetaminophen ER (Tylenol 8 Hour) 650 mg PO Q8H PRN 60 tabs 2RF pain Coding Level of Care Code Est Pt Level 4 (96912) Complex EM visit Add On G2211 Diagnoses Mild anemia D64.9 Hyperlipidemia E78.5
== END 2024-01-29 12:12 | disposition home or self-care (01) ==
PROVIDERS: PCP Nurse Practitioner Family; Visit Provider Nurse Practitioner Family
DX: D64.9 Anemia, unspecified (principal); E78.5 Hyperlipidemia, unspecified
CPT/HCPCS: 99214; G2211

== ENCOUNTER 2024-03-04 13:29 | Outpatient (AMB) | payer MEDICAID, SELFPAY ==
--- NOTE | 2024-03-04 13:30 | A.OFFPC_ITS ---
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 Accompanied by: Self / Same As Patient Allergies No Known Allergies Allergy (Verified 03/04/24 13:54) Medication List - Last Reconciled 03/04/24 by Luisana Cloud CNP acetaminophen ER (Tylenol 8 Hour) 650 mg PO Q8H PRN docusate sodium (Colace) 100 mg PO BID hydroxyzine HCl 50 mg PO BID oxcarbazepine (Trileptal) 150 mg PO BID polyethylene glycol 3350 (Miralax) 17 grams PO DAILY psyllium husk (Metamucil) 17 grams PO DAILY quetiapine 200 mg PO DAILY Tobacco use date assessed: 03/04/24 Fall risk assessment: No Falls in past year Last assessed Fall Risk: 03/04/24 Dental Screening Dental Screen Date: 03/04/24 Did you have a dental visit in the last 12 months?: No Did you have a dental problem in the last 6 months where you did not have access to dental care?: No Was dental information given to patient?: Patient declined HPI HPI Comments History of Present Illness Details 68-year-old male, accompanied by [facility] staff presents for an extended physical exam and review of recent blood work He has PMH significant for schizoaffective disorder,, bipolar, anxiety, depression, mild anemia, hyperlipidemia, and constipation He is followed by Dr. Andrae Berry, psychiatrist who manages all of his medications according his case managers He has a child protective services social worker and a porter sample case He currently lives in a [facility] and receives VNA services He admits to taking his medications as prescribed without adverse reactions He did not get his lab work done before this visit as instructed Denies acute symptoms According to the [facility] staff, the patient has not had the shingles or pneumonia vaccines He states his last colonoscopy was over 10 years ago He has not been seen by a dentist in the past 1 year He does not remember the last time he had an eye exam [facility] Medical History Heart murmur Hepatitis Surgical History H/O hernia repair History of cholecystectomy Family History Mother Cardiovascular disease Father Cardiovascular disease Brother No problems noted. Other Mental health disorder Substance abuse Social History Housing: Assisted Living Facility Alcohol intake: never Patient Tobacco Use Status: Former Tobacco user Tobacco use type: Cigarette e-Cigarette/Vaping Use: Never Used service: Yes Current occupational status: disabled Current occupation: [employer] Cognitive needs: No Hearing needs: Yes Vision needs: Yes Questionnaire PHQ-9 Over the last 2 weeks, how often have you been bothered by any of the following problems? 1. Little interest or pleasure in doing things: not at all 2. Feeling down, depressed, or hopeless: not at all 3. Trouble falling or staying asleep, or sleeping too much: not at all 4. Feeling tired or having little energy: not at all 5. Poor appetite or overeating: not at all 6. Feeling bad about yourself - or that you are a failure or have let yourself or your family down: not at all 7. Trouble concentrating on things, such as reading the newspaper or watching television: not at all 8. Moving or speaking so slowly that other people could have noticed. Or the opposite - being so fidgety or restless that you have been moving around a lot more than usual: not at all 9. Thoughts that you would be better off or of hurting yourself in some way: not at all Total score: 0 Depression Screening Interpretation: Negative Depression Screening Done: Yes 33467 - PHQ-9 Billing: Yes Source: Developed by Drs. Gonzalez Guillory, Radha Godwin, Dash Barlow and colleagues, with an educational carolynn from [employer]. Thrive Questionnaire Date Thrive assessed: 03/04/24 I am a: Patient What is your living situation today?: I have a steady place to live Within the past 12 months, did the food you bought not last and you didn't have the money to get more?: Never true Within the past 12 months, did you worry whether your food would run out before you got money to buy more?: Never true Do you have trouble paying for medicines?: No Do you have trouble getting transportation to medical appointments?: No Do you have trouble paying your heating and electricity bill?: No Do you have trouble taking care of your child, family member or friend?: No Do you have trouble with day-to-day activities such as bathing, preparing meals, shopping, managing finances, etc.?: No Are you currently unemployed and looking for a job?: No Are you interested in more education?: No Please select the resources that you would like help with: None Currently or been in a relationship where the following occur: No concerns reported THRIVE Score: 0 AUDIT C Alcohol Use Questionnaire (AUDIT-C) 1. How often do you have a drink containing alcohol?: Never 3. How often do you have six or more drinks on one occasion?: Never Total Score: 0 LYRIC-7 AMB Questionnaire LYRIC-7 Date LYRIC - 7 assessed: 03/04/24 Feeling nervous, anxious, or on edge: 0 = Not at all Not being able to stop or control worryin = Not at all Worrying too much about different things: 0 = Not at all Trouble relaxin = Not at all Being so restless that it is hard to sit still: 0 = Not at all Becoming easily annoyed or irritable: 0 = Not at all Feeling afraid as if something awful might happen: 0 = Not at all Total LYRIC-7 score (0-4 normal; 5-9 mild; 10-14 moderate; 15-21 severe): 0 Source: Developed by Drs. Gonzalez Guillory, Radha Godwin, Dash Barlow and colleagues, with an educational carolynn from [employer]. LYRIC-7 Assessment Billing LYRIC-7 Assessment Tool: LYRIC-7 Assessment 05038 Review of Systems Const Details: Denies chills, Denies fatigue, Denies fever(s), Denies headache(s) and Denies weakness HEENT Denies change in vision, Denies dizziness, Denies headache(s), Denies hearing loss, Denies nasal congestion, Denies sinus pain, Denies sinus pressure and Denies sore throat Card Denies chest pain, Denies lightheadedness, Denies dyspnea and Denies other (palpitations) Resp Denies cough, Denies dyspnea and Denies wheezing GI Denies abdominal pain, Denies melena, Denies hematochezia, Denies change in bowel habits, Denies dyspepsia and Denies nausea Denies hematuria and Denies dysuria Musc Denies abnormal gait, Denies myalgias, Denies arthralgias, Denies numbness and Denies tingling Skin/Breast Denies rash, Denies unusual bruising and Denies wounds Neuro Denies abnormal gait, Denies dizziness, Denies headache(s), Denies memory loss, Denies numbness, Denies Sensory deficit (Neuro), Denies tingling and Denies weakness Psych Denies anxiety, Denies depression and Denies memory loss Endo Denies cold intolerance, Denies fatigue, Denies heat intolerance, Denies polydipsia and Denies polyuria Nicola/Lymph Denies easy bleeding and Denies easy bruising Aller/Immun Denies wheezing Physical exam (Primary Care) Vital Signs: Last Vital Signs Temp 97.8 F 03/04/24 13:31 Pulse 60 03/04/24 13:31 Resp 14 03/04/24 13:31 BP 134/72 03/04/24 13:31 Pulse Ox 99 03/04/24 13:31 Oxygen Delivery Method Room Air 03/04/24 13:31 BMI result Body Mass Index 22.8 Tobacco/Smoking Status: Tobacco use Status Tobacco use date assessed 03/04/24 03/04/24 13:40 Patient Tobacco Use Status Former Tobacco user 03/04/24 13:40 Tobacco use type Cigarette 03/04/24 13:40 e-Cigarette/Vaping Use Never Used 03/04/24 13:40 PHQ-9: PHQ-9 Score PHQ-9: Total score 0 03/04/24 13:48 Depression Screening Interpretation: Negative Thrive Assessment: Date of Thrive Assessment Date Thrive assessed 03/04/24 03/04/24 13:40 Currently or been in a relationship where the following occur: No concerns reported Const Other: General: no acute distress, well developed, alert and awake Nutritional Appearance: well nourished Orientation/consciousness: patient oriented x3 HENMT Head: Yes normocephalic and Yes atraumatic Ears: hearing grossly normal bilaterally and TM's normal bilaterally General nose exam: Normal external nose present and Normal nares present Mouth: Normal oral and palatal mucosa present and moist mucous membranes Teeth and gingiva: Endentulos Throat: Yes oropharynx normal Eyes Pupils: Equal, round and reactive pupils present and Pupil accommodation reflex normal EOM: EOMs intact bilaterally Neck Neck: Yes normal visual inspection, Yes no lymphadenopathy and Yes trachea midline Thyroid: Thyroid normal Carotids: no bruits Lymphatic: no lymphadenopathy noted Chest Chest palpation & inspection: normal inspection of the chest Resp Effort & Inspection: normal respiratory effort Auscultation: clear to auscultation bilaterally Cardio Rate: regular rate Rhythm: regular rhythm Heart sounds: S1 normal heart sound present, S2 normal heart sound present, no gallops, no murmurs and no rubs Bruits: no abdominal aortic bruits and no carotid bruits GI Palpation (GI): No Abdominal aortic bruit present, Soft to palpation, nontender, No hepatosplenomegaly present and No Rebound tenderness present Auscultation: normal bowel sounds General: Yes no CVA tenderness Back/Spine/Pelvis Back: no CVA tenderness Cervical Spine: cervical ROM normal and No Cervical spine tenderness Thoracic/Lumbar Spine: thoraco-lumbar ROM normal, No pain with thoraco-lumbar ROM, No thoracic spinal tenderness and No lumbar spinal tenderness Skin General: warm and dry. Normal skin color. Normal skin turgor Lesions: no lesions Rashes: no rashes Trauma: no lacerations or abrasions Wounds: no wounds Nails: normal Neuro General: patient oriented x3, gait normal and CN's II-XI intact bilaterally Cranial nerves: Yes Equal, round and reactive pupils present Cognition (Neuro): normal cognition Gait exam (Neuro): Normal gait present Motor exam (neuro): 5/5 motor strength present throughout Sensory Exam: No Sensory deficit (Neuro) Deep tendon reflexes (DTR's): Right patellar reflex intensity grade: 2+ and Left patellar reflex intensity grade: 2+ Extrem General: Yes normal to inspection, No edema and No calf tenderness Psych Appearance: grossly normal Affect: normal affect Attitude: cooperative Thought process: Normal thought process present Assessment and Plan Assessment & Plan (1) Normal routine history and physical examination: Code(s): Z00.00 - Encounter for general adult medical examination without abnormal findings Plan: No significant physical restrictions or limitations noted Continue current treatment regimen Healthy diet and routine exercise encouraged Advised to establish with a dentist for routine dental care Continue follow-up with psychiatrist as planned Encouraged to get fasting blood work done and follow-up in a month for labs review Return sooner with symptoms or concerns Verbalized understanding and agreed with treatment plan (2) Colon cancer screening: Code(s): Z12.11 - Encounter for screening for malignant neoplasm of colon Plan: His last colonoscopy was over 10 years ago He was referred to [facility] for a colonoscopy a year ago but did not follow-up Referred to [facility] for a colonoscopy (3) Vaccine counseling: Code(s): Z71.85 - Encounter for immunization safety counseling Plan: He has not been vaccinated for shingles or pneumonia Instructed on a importance of vaccination and encouraged to get vaccinated for shingles and pneumonia skilled nursing staff advised to ensure that the patient get both vaccines from the local pharmacy Verbalized understanding and agreed with the plan Orders: Referrals Ophthalmology Referral Z00.00 - Encounter for general adult medical examination without abnormal findings Gastroenterology Referral Z12.11 - Encounter for screening for malignant neoplasm of colon Medications: Refilled acetaminophen ER (Tylenol 8 Hour) 650 mg PO Q8H PRN 60 tabs 2RF pain Coding Level of Care Code Est Pt Prev Care >65y(72945) Diagnoses Normal routine history and physical examination Z00.00 Colon cancer screening Z12.11 Vaccine counseling Z71.85 Additional Codes LYRIC-7 Assessment Billing - LYRIC-7 Assessment Tool: LYRIC-7 Assessment [id number] ([id number])
[2024-03-04 13:31] VITALS: BP 134/72; PULSE 60; RESP 14; TEMP 36.6; O2SAT 99; BMI 22.8
== END 2024-03-04 14:20 | disposition home or self-care (01) ==
PROVIDERS: PCP Nurse Practitioner Family; Visit Provider Nurse Practitioner Family
DX: Z00.00 Encounter for general adult medical examination without abnormal findings (principal); Z12.11 Encounter for screening for malignant neoplasm of colon; Z71.85 Encounter for immunization safety counseling
CPT/HCPCS: 99397

== ENCOUNTER 2024-03-22 08:47 | Outpatient (REF) | payer MEDICAID, SELFPAY ==
[2024-03-22 11:38] LABS: Hemoglobin 14.6 g/dl (14.0-18.0); Immature Retic Fraction 7.8 % (2.3-13.4); Mean Corpuscular HGB Conc 33.2 g/dl (31.0-36.0); Mean Corpuscular Hemoglobin 29.3 pg (27.0-33.0); Mean Corpuscular Volume 88.4 fL (80.0-98.0); Mean Platelet Volume 11.4 fL (9.4-12.4); Platelet Count 197 X10*3/uL (160-400); Red Blood Count 4.98 X10*6/uL (4.60-5.80); Red Cell Distribution Width 13.5 % (11.0-16.0); Retic HGB Equivalent 33.9 pg (30.0-35.0); Reticulocyte Percent 0.8 % (0.5-1.8); Reticulocytes Absolute 0.039 X10*6/uL (0.026-0.095); White Blood Count 5.7 X10*3/uL (4.8-10.8)
[2024-03-22 11:56] LABS: Cholesterol 199 mg/dL (<200); HDL Cholesterol 52 mg/dL (>40); Iron 106 mcg/dL (45-160); LDL Cholesterol Calculated 130 mg/dL (<100); Percent Iron Saturation 39 % (15-50); Total Iron Binding Capacity 275 mcg/dL (228-428); Triglycerides 89 mg/dL (<150); Unsaturated Iron Binding 169 ug/dL
[2024-03-22 12:12] LABS: TSH reflex Free T4 1.09 uIU/mL (0.32-4.0)
[2024-03-22 12:27] LABS: Folate 9.3 ng/mL (> or = 4.0); Vitamin B12 312 pg/mL (200-900)
[2024-03-29 21:08] LABS: PSA, Ultra Sensitive 1.61 ng/mL
== END 2024-03-22 08:48 | disposition home or self-care (01) ==
LOC: HO.WFDLDS 08:47
PROVIDERS: Visit Provider Nurse Practitioner Family
DX: Z00.00 Encounter for general adult medical examination without abnormal findings (principal); D64.9 Anemia, unspecified; E78.5 Hyperlipidemia, unspecified
CPT/HCPCS: 36415; 80061; 82607; 82746; 83540; 84153; 84443; 85027; 85045

== ENCOUNTER 2024-04-08 11:02 | Outpatient (AMB) | payer MEDICAID, SELFPAY ==
--- NOTE | 2024-04-08 11:06 | A.OFFPC_ITS ---
Vital Signs 04/08/24 11:08 Height 6 ft Weight 169 lb 6 oz BMI 23.0 BP 120/60 Blood Pressure Location Lt brachial Position Sitting Respiration 18 Pulse 78 Pulse Source Pulse Oximeter Pulse Oximetry (%) 98 Oxygen Delivery Method Room Air Intake Visit Reasons: 1 month lab review Intake Note: Patient is here to follow up on Lab results, HCP order progress note form to be filled out. Corporate Legal Intern Required: No Power Barker Operator: Not Required per policy Accompanied by: Self / Same As Patient Allergies No Known Allergies Allergy (Verified 04/08/24 11:27) Medication List - Last Reconciled 04/08/24 by Luisana Cloud CNP acetaminophen ER (Tylenol 8 Hour) 650 mg PO Q8H PRN docusate sodium (Colace) 100 mg PO BID hydroxyzine HCl 50 mg PO BID oxcarbazepine (Trileptal) 150 mg PO BID polyethylene glycol 3350 (Miralax) 17 grams PO DAILY psyllium husk (Metamucil) 17 grams PO DAILY quetiapine 200 mg PO DAILY Tobacco use date assessed: 04/08/24 Fall risk assessment: No Falls in past year Last assessed Fall Risk: 04/08/24 Dental Screening Dental Screen Date: 03/04/24 HPI HPI Comments History of Present Illness Details 68-year-old male presents for review of recent blood work follow-up He notes that he is always anxious, some days more anxious than others. He saw his psychiatrist a few days ago. He does not see a therapist but my friend is my therapist. He admits to eating healthy, sleeping well, and walking every day. No depressive symptoms. No SI/HI/AVH PFSH Medical History Heart murmur Hepatitis Surgical History H/O hernia repair History of cholecystectomy Family History Mother Cardiovascular disease Father Cardiovascular disease Brother No problems noted. Other Mental health disorder Substance abuse Social History Housing: Assisted Living Facility Alcohol intake: never Patient Tobacco Use Status: Former Tobacco user Tobacco use type: Cigarette e-Cigarette/Vaping Use: Never Used service: Yes Current occupational status: disabled Current occupation: [employer] Cognitive needs: No Hearing needs: Yes Vision needs: Yes Questionnaire Thrive Questionnaire Date Thrive assessed: 03/04/24 LYRIC-7 AMB Questionnaire LYRIC-7 Date LYRIC - 7 assessed: 04/08/24 Feeling nervous, anxious, or on edge: 3 = Nearly every day Not being able to stop or control worryin = Nearly every day Worrying too much about different things: 3 = Nearly every day Trouble relaxin = More than half the days Being so restless that it is hard to sit still: 3 = Nearly every day Becoming easily annoyed or irritable: 3 = Nearly every day Feeling afraid as if something awful might happen: 0 = Not at all Total LYRIC-7 score (0-4 normal; 5-9 mild; 10-14 moderate; 15-21 severe): 17 Source: Developed by Drs. Gonzalez Guillory, Radha Godwin, Dash Barlow and colleagues, with an educational carolynn from [employer]. Review of Systems Const Details: Const Denies chills, Denies fatigue, Denies fever(s), Denies headache(s) and Denies weakness ENT Denies dizziness and Denies headache(s) Card Denies chest pain, Denies lightheadedness, Denies dyspnea and Denies other (Palpitations) Resp Denies cough, Denies dyspnea, Denies wheezing and Denies other ( shortness of breath) GI Denies abdominal pain, Denies melena, Denies hematochezia, Denies change in bowel habits, Denies dyspepsia and Denies nausea Denies hematuria and Denies dysuria Musc Denies abnormal gait, Denies myalgias, Denies arthralgias, Denies numbness and Denies tingling Skin/Breast Denies rash, Denies unusual bruising and Denies wounds Neuro Denies abnormal gait, Denies dizziness, Denies headache(s), Denies memory loss, Denies numbness, Denies Sensory deficit (Neuro), Denies tingling and Denies weakness Psych Reports anxiety, Denies depression, Denies memory loss Endo Denies cold intolerance, Denies fatigue, Denies heat intolerance, Denies polydipsia and Denies polyuria Aller/Immun Denies wheezing Physical exam (Primary Care) Vital Signs: Last Vital Signs Pulse 78 04/08/24 11:08 BP 120/60 04/08/24 11:08 Pulse Ox 98 04/08/24 11:08 Oxygen Delivery Method Room Air 04/08/24 11:08 BMI result Body Mass Index 23.0 Tobacco/Smoking Status: Tobacco use Status Tobacco use date assessed 04/08/24 04/08/24 11:18 Patient Tobacco Use Status Former Tobacco user 04/08/24 11:18 Tobacco use type Cigarette 04/08/24 11:18 e-Cigarette/Vaping Use Never Used 04/08/24 11:18 Thrive Assessment: Date of Thrive Assessment Date Thrive assessed 03/04/24 04/08/24 11:18 Const Other: General: no acute distress and well developed Nutritional Appearance: well nourished Orientation/consciousness: patient oriented x3 HENMT Head: Yes normocephalic and Yes atraumatic Eyes General: appearance normal, both eyes and all related structures Pupils: Equal, round and reactive pupils present EOM: EOMs intact bilaterally Resp Effort & Inspection: normal respiratory effort Auscultation: clear to auscultation bilaterally Cardio Rate: regular rate Rhythm: regular rhythm Heart sounds: S1 normal heart sound present, S2 normal heart sound present, no gallops, no murmurs and no rubs GI Palpation (GI): No Abdominal aortic bruit present, Soft to palpation, nontender, No hepatosplenomegaly present and No Rebound tenderness present Auscultation: normal bowel sounds General: Yes no CVA tenderness Back/Spine/Pelvis Back: no CVA tenderness Cervical Spine: cervical ROM normal and No Cervical spine tenderness Thoracic/Lumbar Spine: thoraco-lumbar ROM normal, No pain with thoraco-lumbar ROM, No thoracic spinal tenderness and No lumbar spinal tenderness Extrem General: Yes normal to inspection, No edema and No calf tenderness Skin General: warm and dry. Normal skin color. Normal skin turgor Neuro General: patient oriented x3, gait normal and no focal neuro deficit Cranial nerves: Yes Equal, round and reactive pupils present Cognition (Neuro): normal cognition Gait exam (Neuro): Normal gait present Sensory Exam: No Sensory deficit (Neuro) Psych Appearance: grossly normal Affect: normal affect Attitude: cooperative Thought process: Normal thought process present Assessment and Plan Assessment & Plan (1) Hyperlipidemia: Code(s): E78.5 - Hyperlipidemia, unspecified Plan: Recent total lab results is unremarkable except for slightly elevated LDL level, 130; total cholesterol is normal, 199, previous level was 204 Advised to limit foods high in saturated fat and avoid foods high in trans fat Routine exercise encouraged Follow-up in a year for an extended physical exam or sooner with symptoms or concerns Verbalized understanding and agreed with the treatment plan (2) Mild anemia: Code(s): D64.9 - Anemia, unspecified Plan: Resolved Normal CBC and iron studies (3) Anxiety: Code(s): F41.9 - Anxiety disorder, unspecified Plan: Reports chronic anxiety. Sleep is adequate. No depressive symptoms. No SI/HI/AVH LYRIC-7 score revealed severe anxiety Continue current treatment regimen Continue follow-up with psychiatrist as planned Routine exercise encouraged Verbalized understanding and agreed with the treatment plan Coding Level of Care Code Est Pt Level 4 (01571) Complex EM visit Add On G2211 Diagnoses Hyperlipidemia E78.5 Mild anemia D64.9 Anxiety F41.9
[2024-04-08 11:08] VITALS: BP 120/60; PULSE 78; RESP 18; O2SAT 98; BMI 23.0
== END 2024-04-08 11:45 | disposition home or self-care (01) ==
PROVIDERS: PCP Nurse Practitioner Family; Visit Provider Nurse Practitioner Family
DX: E78.5 Hyperlipidemia, unspecified (principal); D64.9 Anemia, unspecified; F41.9 Anxiety disorder, unspecified
CPT/HCPCS: 99214

== ENCOUNTER 2024-05-06 16:48 | Outpatient (AMB) | payer MEDICAID, SELFPAY ==
--- NOTE | 2024-05-06 16:57 | A.OFFPC_ITS ---
Vital Signs 05/06/24 17:03 Height 6 ft Weight 175 lb BMI 23.7 BP 130/80 Blood Pressure Location Rt brachial Position Sitting Respiration 16 Pulse 86 Pulse Source Pulse Oximeter Temp 98.7 F Temp Source Oral Pulse Oximetry (%) 94 Oxygen Delivery Method Room Air Intake Visit Reasons: Trouble Hearing Intake Note: patient here c/o trouble hearing. Telemetry Registered Nurse Required: No Allergies No Known Allergies Allergy (Verified 05/06/24 17:00) Tobacco use date assessed: 04/08/24 Dental Screening Dental Screen Date: 03/04/24 HPI HPI Comments History of Present Illness Details 68-year-old male from [facility], acco mpanied by penitentiary staff, presents with complaints slight trouble hearing in his left year. He notes that penitentiary staff advised that he come in for an evaluation. He denies constitutional symtpoms. [facility] Medical History Heart murmur Hepatitis Surgical History H/O hernia repair History of cholecystectomy Family History Mother Cardiovascular disease Father Cardiovascular disease Brother No problems noted. Other Mental health disorder Substance abuse Social History Housing: Assisted Living Facility Alcohol intake: never Patient Tobacco Use Status: Former Tobacco user Tobacco use type: Cigarette e-Cigarette/Vaping Use: Never Used service: Yes Current occupational status: disabled Current occupation: [employer] Cognitive needs: No Hearing needs: Yes Vision needs: Yes Questionnaire Thrive Questionnaire Date Thrive assessed: 03/04/24 LYRIC-7 AMB Questionnaire LYRIC-7 Date LYRIC - 7 assessed: 04/08/24 Source: Developed by Drs. Gonzalez Guillory, Radha Godwin, Dash Barlow and colleagues, with an educational carolynn from [employer]. Review of Systems Const Details: Const Denies chills, Denies fatigue, Denies fever(s), Denies headache(s) and Denies weakness ENT Denies dizziness and Denies headache(s) Card Denies chest pain, Denies lightheadedness, Denies dyspnea and Denies other (Palpitations) Resp Denies cough, Denies dyspnea, Denies wheezing and Denies other ( shortness of breath) GI Denies abdominal pain, Denies melena, Denies hematochezia, Denies change in bowel habits, Denies dyspepsia and Denies nausea Denies hematuria and Denies dysuria Musc Denies abnormal gait, Denies myalgias, Denies arthralgias, Denies numbness and Denies tingling Skin/Breast Denies rash, Denies unusual bruising and Denies wounds Neuro Denies abnormal gait, Denies dizziness, Denies headache(s), Denies memory loss, Denies numbness, Denies Sensory deficit (Neuro), Denies tingling and Denies weakness Psych Denies anxiety, Denies depression, Denies memory loss Endo Denies cold intolerance, Denies fatigue, Denies heat intolerance, Denies polydipsia and Denies polyuria Aller/Immun Denies wheezing Physical exam (Primary Care) Tobacco/Smoking Status: Tobacco use Status Tobacco use date assessed 04/08/24 05/06/24 16:59 Patient Tobacco Use Status Former Tobacco user 05/06/24 16:59 Tobacco use type Cigarette 05/06/24 16:59 e-Cigarette/Vaping Use Never Used 05/06/24 16:59 Thrive Assessment: Date of Thrive Assessment Date Thrive assessed 03/04/24 05/06/24 16:59 Const Other: General: no acute distress and well developed Nutritional Appearance: well nourished Orientation/consciousness: patient oriented x3 HENMT Head is normocephalic Left ear canal and TM is normal. Impacted cerumen of the left ear occluding the TM Nasal turbinates and oropharynx are pink and moist Sinuses are nontender with palpation No auricular or cervical lymphadenopathy Eyes General: appearance normal, both eyes and all related structures Pupils: Equal, round and reactive pupils present EOM: EOMs intact bilaterally Resp Effort & Inspection: normal respiratory effort Auscultation: clear to auscultation bilaterally Cardio Rate: regular rate Rhythm: regular rhythm Heart sounds: S1 normal heart sound present, S2 normal heart sound present, no gallops, no murmurs and no rubs GI Palpation (GI): No Abdominal aortic bruit present, Soft to palpation, nontender, No hepatosplenomegaly present and No Rebound tenderness present Auscultation: normal bowel sounds General: Yes no CVA tenderness Back/Spine/Pelvis Back: no CVA tenderness Cervical Spine: cervical ROM normal and No Cervical spine tenderness Thoracic/Lumbar Spine: thoraco-lumbar ROM normal, No pain with thoraco-lumbar ROM, No thoracic spinal tenderness and No lumbar spinal tenderness Extrem General: Yes normal to inspection, No edema and No calf tenderness Skin General: warm and dry. Normal skin color. Normal skin turgor Neuro General: patient oriented x3, gait normal and no focal neuro deficit Cranial nerves: Yes Equal, round and reactive pupils present Cognition (Neuro): normal cognition Gait exam (Neuro): Normal gait present Sensory Exam: No Sensory deficit (Neuro) Psych Appearance: grossly normal Affect: normal affect Attitude: cooperative Thought process: Normal thought process present Assessment and Plan Assessment & Plan (1) Impacted cerumen, left ear: Code(s): H61.22 - Impacted cerumen, left ear Plan: Impacted cerumen of the left ear occluding the TM Left ear lavage performed; normal ear canal and TM; reports significant improvement with his left hearing Encouraged to follow-up with symptoms or concerns Verbalized understanding and agreed with the plan Coding Level of Care Code Est Pt Level 4 (68804) Diagnoses Impacted cerumen, left ear H61.22
[2024-05-06 17:03] VITALS: BP 130/80; PULSE 86; RESP 16; TEMP 37.1; O2SAT 94; BMI 23.7
== END 2024-05-06 17:32 | disposition home or self-care (01) ==
PROVIDERS: PCP Nurse Practitioner Family; Visit Provider Nurse Practitioner Family
DX: H61.22 Impacted cerumen, left ear (principal)
CPT/HCPCS: 99214

== ENCOUNTER 2025-04-10 13:26 | Outpatient (AMB) | payer MEDICARE, MEDICAID, SELFPAY ==
--- NOTE | 2025-04-10 13:35 | MHC.PC.OV ---
Vital Signs 04/10/25 13:42 Height 6 ft Weight 177 lb BMI 24.0 BP 116/60 Blood Pressure Location Lt brachial Position Sitting Respiration 16 Pulse 77 Pulse Source Pulse Oximeter Temp 98.1 F Temp Source Temporal Artery Scan Pulse Oximetry (%) 97 Oxygen Delivery Method Room Air Intake Visit Reasons: physical Intake Note: Eligio presents in the office today for his annual physical. Allergies No Known Allergies Allergy (Verified 04/10/25 13:46) Medication List - Last Reviewed 04/10/25 by Letty Rader MA acetaminophen ER (Tylenol 8 Hour) 650 mg PO Q8H PRN olanzapine 20 mg PO BEDTIME olanzapine 10 mg PO BEDTIME oxcarbazepine 450 mg PO BID psyllium husk (Metamucil) 17 grams PO DAILY trazodone 50 mg PO BEDTIME Tobacco use date assessed: 04/10/25 Fall risk assessment: No Falls in past year Last assessed Fall Risk: 04/10/25 Dental Screening Dental Screen Date: 04/10/25 Did you have a dental visit in the last 12 months?: No Did you have a dental problem in the last 6 months where you did not have access to dental care?: No Was dental information given to patient?: No HPI HPI Comments History of Present Illness Details 69-year-old male presents for an extended physical exam. He admits to taking his medications as prescribed without adverse reactions. Acute issue(s) - None Past Medical History - Schizoaffective disorder, bipolar, anxiety, depression, mild anemia, hyperlipidemia, constipation, and endentulous (wears dentures) Social History - Former smoker, quit 30 years ago. Does not vape. Does not drink alcohol. Denies recreational drug use - Has been making healthy dietary choices. Exercises routinely. Generally sleep well Health maintenance - Last eye exam several years ago. Referred to Ophthalmology for routine eye exam - Last dental visit was 1 month ago - Last tetanus vaccine was more than 10 years ago; received Tdap vaccine today - He notes that he his up-to-date on he shingles and PNA vaccines from [facility], [place]. Update on PNA vaccines per pharmacy but no record for shingles vaccine. Encouraged to get vaccination for shingles at the local pharmacy - He notes that he is up-to-date on the flu vaccine - Last colonoscopy over 20 years ago. Was referred to [facility] gastroenterology a year ago; he canceled/rescheduled once and then declined. Referred to [facility] gastroenterology for colonoscopy Specialists Dr. Abebe Kristi [facility] Medical History Heart murmur Hepatitis Surgical History H/O hernia repair History of cholecystectomy Family History Mother Cardiovascular disease Father Cardiovascular disease Brother No problems noted. Other Mental health disorder Substance abuse Social History Housing: Assisted Living Facility Alcohol intake: never Patient Tobacco Use Status: Former Tobacco user Tobacco use type: Cigarette e-Cigarette/Vaping Use: Never Used Second Hand Smoke Exposure: No service: Yes Current occupational status: disabled Current occupation: [employer] Cognitive needs: No Hearing needs: Yes Vision needs: Yes Questionnaire PHQ-9 Over the last 2 weeks, how often have you been bothered by any of the following problems? 1. Little interest or pleasure in doing things: not at all 2. Feeling down, depressed, or hopeless: not at all 3. Trouble falling or staying asleep, or sleeping too much: not at all 4. Feeling tired or having little energy: not at all 5. Poor appetite or overeating: not at all 6. Feeling bad about yourself - or that you are a failure or have let yourself or your family down: not at all 7. Trouble concentrating on things, such as reading the newspaper or watching television: not at all 8. Moving or speaking so slowly that other people could have noticed. Or the opposite - being so fidgety or restless that you have been moving around a lot more than usual: not at all 9. Thoughts that you would be better off or of hurting yourself in some way: not at all Total score: 0 Depression Screening Interpretation: Negative Depression Screening Done: Yes 41341 - PHQ-9 Billing: Yes Source: Developed by Drs. Gonzalez Guillory, Radha Godwin, Dash Barlow and colleagues, with an educational carolynn from [employer]. Thrive Questionnaire Date Thrive assessed: 03/04/24 LYRIC-7 AMB Questionnaire LYRIC-7 Date LYRIC - 7 assessed: 04/10/25 Feeling nervous, anxious, or on edge: 0 = Not at all Not being able to stop or control worryin = Not at all Worrying too much about different things: 0 = Not at all Trouble relaxin = Not at all Being so restless that it is hard to sit still: 0 = Not at all Becoming easily annoyed or irritable: 0 = Not at all Feeling afraid as if something awful might happen: 0 = Not at all Total LYRIC-7 score (0-4 normal; 5-9 mild; 10-14 moderate; 15-21 severe): 0 Source: Developed by Drs. Gonzalez Guillory, Radha Godwin, Dash Barlow and colleagues, with an educational carolynn from [employer]. LYRIC-7 Assessment Billing LYRIC-7 Assessment Tool: LYRIC-7 Assessment 72495 Review of Systems Const Details: Denies chills, Denies fatigue, Denies fever(s), Denies headache(s) and Denies weakness HEENT Denies change in vision, Denies dizziness, Denies headache(s), Denies hearing loss, Denies nasal congestion, Denies sinus pain, Denies sinus pressure and Denies sore throat Card Denies chest pain, Denies lightheadedness, Denies dyspnea and Denies other (palpitations) Resp Denies cough, Denies dyspnea and Denies wheezing GI Denies abdominal pain, Denies melena, Denies hematochezia, Denies change in bowel habits, Denies dyspepsia and Denies nausea Denies hematuria and Denies dysuria Musc Denies abnormal gait, Denies myalgias, Denies arthralgias, Denies numbness and Denies tingling Skin/Breast Denies rash, Denies unusual bruising and Denies wounds Neuro Denies abnormal gait, Denies dizziness, Denies headache(s), Denies memory loss, Denies numbness, Denies Sensory deficit (Neuro), Denies tingling and Denies weakness Psych Denies anxiety, Denies depression and Denies memory loss Endo Denies cold intolerance, Denies fatigue, Denies heat intolerance, Denies polydipsia and Denies polyuria Nicola/Lymph Denies easy bleeding and Denies easy bruising Aller/Immun Denies wheezing Physical exam (Primary Care) Vital Signs: Last Vital Signs Temp 98.1 F 04/10/25 13:42 Pulse 77 04/10/25 13:42 Resp 16 04/10/25 13:42 BP 116/60 04/10/25 13:42 Pulse Ox 97 04/10/25 13:42 Oxygen Delivery Method Room Air 04/10/25 13:42 BMI result Body Mass Index 24.0 Tobacco/Smoking Status: Tobacco use Status Tobacco use date assessed 04/10/25 04/10/25 13:46 Patient Tobacco Use Status Former Tobacco user 04/10/25 13:42 Tobacco use type Cigarette 04/10/25 13:42 e-Cigarette/Vaping Use Never Used 04/10/25 13:42 PHQ-9: PHQ-9 Score PHQ-9: Total score 0 04/10/25 13:46 Depression Screening Interpretation: Negative Thrive Assessment: Date of Thrive Assessment Date Thrive assessed 03/04/24 04/10/25 13:36 Const Other: General: no acute distress, well developed, alert and awake Nutritional Appearance: well nourished Orientation/consciousness: patient oriented x3 HENMT Head: Yes normocephalic and Yes atraumatic Ears: hearing grossly normal bilaterally and TM's normal bilaterally General nose exam: Normal external nose present and Normal nares present Mouth: Normal oral and palatal mucosa present and moist mucous membranes Teeth and gingiva: Endentulous Throat: Yes oropharynx normal Eyes Pupils: Equal, round and reactive pupils present and Pupil accommodation reflex normal EOM: EOMs intact bilaterally Neck Neck: Yes normal visual inspection, Yes no lymphadenopathy and Yes trachea midline Thyroid: Thyroid normal Carotids: no bruits Lymphatic: no lymphadenopathy noted Chest Chest palpation & inspection: normal inspection of the chest Resp Effort & Inspection: normal respiratory effort Auscultation: clear to auscultation bilaterally Cardio Rate: regular rate Rhythm: regular rhythm Heart sounds: S1 normal heart sound present, S2 normal heart sound present, no gallops, no murmurs and no rubs Bruits: no abdominal aortic bruits and no carotid bruits GI Palpation (GI): No Abdominal aortic bruit present, Soft to palpation, nontender, No hepatosplenomegaly present and No Rebound tenderness present Auscultation: normal bowel sounds General: Yes no CVA tenderness Back/Spine/Pelvis Back: no CVA tenderness Cervical Spine: cervical ROM normal and No Cervical spine tenderness Thoracic/Lumbar Spine: thoraco-lumbar ROM normal, No pain with thoraco-lumbar ROM, No thoracic spinal tenderness and No lumbar spinal tenderness Skin General: warm and dry. Normal skin color. Normal skin turgor Lesions: no lesions Rashes: no rashes Trauma: no lacerations or abrasions Wounds: no wounds Nails: normal Neuro General: patient oriented x3, gait normal and CN's II-XI intact bilaterally Cranial nerves: Yes Equal, round and reactive pupils present Cognition (Neuro): normal cognition Gait exam (Neuro): Normal gait present Motor exam (neuro): 5/5 motor strength present throughout Sensory Exam: No Sensory deficit (Neuro) Deep tendon reflexes (DTR's): Right patellar reflex intensity grade: 2+ and Left patellar reflex intensity grade: 2+ Extrem General: Yes normal to inspection, No edema and No calf tenderness Psych Appearance: grossly normal Affect: normal affect Attitude: cooperative Thought process: Normal thought process present Immunizations Boostrix Tdap 2.5 Lf unit-8 mcg-5 Lf/0.5 mL intramuscular syringe Performing Provider: Luisana Cloud CNP Performing Location: [facility] Family Medicine Administered by: Letty Rader MA on 04/10/25 14:18 Dose Route Admin Location Dispensed Lot Number Expiration Date [facility] Route Sales Associate 0.5 mL IM Right Deltoid 0.5 mL [id number] 10/28/26 [id number] [employer] Total Dispensed Waste 0.5 mL 0 % VIS Given Date VIS Provided VIS Publication Date 04/10/25 Single Vaccine 21 Eligibility Eligibility Date Funding Source Not [facility] Eligible 04/10/25 Private Coding Level of Care Code Est Pt Prev Care >65y(53767) Diagnoses Normal routine history and physical examination Z00.00 Schizoaffective disorder, bipolar type F25.0 Schizoaffective disorder type: bipolar Eye exam, routine Z01.00 Colon cancer screening Z12.11 Laboratory tests ordered as part of a complete physical exam (CPE) Z00.00 Additional Codes LYRIC-7 Assessment Billing - LYRIC-7 Assessment Tool: LYRIC-7 Assessment 65249 ([id number]) PHQ-9 - 23970 - PHQ-9 Billing: Yes ([id number]) Assessment & Plan Assessment & Plan (1) Normal routine history and physical examination: Code(s): Z00.00 - Encounter for general adult medical examination without abnormal findings Category: Medical Plan: No significant functional limitations noted. Continue current treatment regimen. Healthy diet and routine exercise encouraged. Follow-up with psychiatrist as planned. Perform lab work and follow-up for labs reviewed 2-4 weeks. Return sooner with symptoms or concerns. Verbalized understanding and agreed with treatment plan. (2) Schizoaffective disorder: Code(s): F25.9 - Schizoaffective disorder, unspecified Category: Medical Qualifiers: Schizoaffective disorder type: bipolar Qualified Code(s): F25.0 - Schizoaffective disorder, bipolar type Plan: Continue current treatment regimen. Followed by Dr. Abebe Kristi. (3) Eye exam, routine: Code(s): Z01.00 - Encounter for examination of eyes and vision without abnormal findings Category: Medical Plan: Last eye exam several years ago. Referred to Ophthalmology for routine eye exam. (4) Colon cancer screening: Code(s): Z12.11 - Encounter for screening for malignant neoplasm of colon Category: Medical Plan: Last colonoscopy over 20 years ago. Was referred to [facility] gastroenterology a year ago; he canceled/rescheduled once and then declined. Referred to [facility] gastroenterology for colonoscopy. (5) Laboratory tests ordered as part of a complete physical exam (CPE): Code(s): Z00.00 - Encounter for general adult medical examination without abnormal findings Category: Medical Plan: Fasting labs ordered as part of a complete physical exam. Advised to fast for at least 10 hours before getting labs drawn. May drink water Verbalized understanding and agreed with treatment plan. Orders: Orders Complete Blood Count Auto Diff Today Z00.00 - Encounter for general adult medical examination without abnormal findings TSH reflex Free T4 Today Z00.00 - Encounter for general adult medical examination without abnormal findings UA CC w/rflx Micro + Cult Today Z00.00 - Encounter for general adult medical examination without abnormal findings Vitamin D 25-OH Total Today Z00.00 - Encounter for general adult medical examination without abnormal findings TDaP Immunization Today Z23 - Encounter for immunization Comprehensive [place]. Panel Fast Today Z00.00 - Encounter for general adult medical examination without abnormal findings Lipid Panel Today Z00.00 - Encounter for general adult medical examination without abnormal findings Microalbumin, Random (w Creat) Today Z00.00 - Encounter for general adult medical examination without abnormal findings PSA, Ultra Sensitive Today Z00.00 - Encounter for general adult medical examination without abnormal findings Referrals Gastroenterology Referral Z12.11 - Encounter for screening for malignant neoplasm of colon Ophthalmology Referral Z01.00 - Encounter for examination of eyes and vision without abnormal findings
[2025-04-10 13:42] VITALS: BP 116/60; PULSE 77; RESP 16; TEMP 36.7; O2SAT 97; BMI 24.0
--- OUTSIDE RECORDS SUMMARY | 2025-04-10 13:42 | XMS_ITS | Clinical Summary ---
Author Organization [facility] Address [address] [place] [address] Phone Care Team Providers Care Associate Vice President Name Role Phone Physician, No Pcp Primary Care Provider Unavaila ble Medications polyethylene glycol (MIRALAX) 17 gram packet Take 17 g by mouth 1 (one) time each day. Active busPIRone (BUSPAR) 15 mg tabletIndicatio ns:generalized anxiety disorder Take 1 tablet (15 mg total) by mouth 2 (two) times a day. Active OLANZapine (ZyPREXA) 20 mg tablet Take 2 tablets (40 mg total) by mouth at bedtime. Active traZODone (DESYREL) 50 mg tablet Take 1 tablet (50 mg total) by mouth at bedtime. Active acetaminophen (TYLENOL) 325 mg tablet Take 2 tablets (650 mg total) by mouth every 8 (eight) hours if needed for moderate pain. Active Medical History Medical History Date Comments Bipolar disorder (manic depr ession) ([facility], [facility] V28) per shelter paperwork Generalized anxiety disorder per shelter paperwork Social History Tobacco Use Types Packs/Day Years Used Date Smoking Tobacco: Never Smokeless Tobacco: Never Tobacco Cessation:Counseling Given: Not Answered Alcohol Use Standard Drinks/Week Comments Never 0 (1 standard drink = 0.6 oz pur e alcohol) Sex and Gender Information Value Date Recorded Sex Assigned at Male 10/17/2024 6:42 PM EST Legal Sex Male 5:21 PM EST Gender Identity Male 10/17/2024 6:42 PM EST Sexual Orientation Straight 10/17/2024 6: 42 PM EST Obstetrics History Last Filed Vital Signs Vital Sign Reading Time Taken Comments Blood Pressure 119/72 10/19/2024 7:12 AM EST Pulse 54 10/19/2024 7:12 AM EST Temperature 36.7 C (98.1 F) 10/19/2024 7:12 AM EST Respiratory Rate 16 10/19/2024 7:12 AM EST Oxygen Saturation 100% 10/19/2024 7:12 AM EST Inhaled Oxygen Concentration - - Weight 77.1 kg (170 lb) 10/17/2024 5:29 PM EST Height 182.9 cm (6') 10/17/2024 5:29 PM EST Body Mass Index 23.06 10/17/2024 5:29 PM EST Plan of Treatment Health Maintenance Due Date Last Done Comments DTaP,Tdap,and Td Vaccines (1 - Tdap) 1974 Pneumococcal Vaccine: 50+ Years (1 of 1 - PCV) 2005 Zoster Vaccines (1 of 2) 2005 COVID-19 Vaccine (4 - 2023-2 5 season) 2024 09/26/2021, 03/22/2021, 02/22/2021 Depression Screening 09/07/2024 Cholesterol Screening (Lipid Panel) 10/18/2024 Colorectal Cancer Screening: Colonoscopy 10/18/2024 Hepatitis C Screening 10/18/2024 Social Influencers of Health Screening 10/18/2024 Influenza Vaccine (#1) 2025 Falls Risk Assessment 10/17/2025 10/17/2024 RSV Immunization Adult Patients (1 - 1-dose 75+ series) 2030 HIB Vaccines Aged Out No longer eligi ble based on patient's age to complete this topic HPV Vaccines Aged Out No longer eligi ble based on patient's age to complete this topic Hepatitis A Vaccines Aged Out No long er eligible based on patient's age to complete this topic Hepatitis B Vaccines Aged Out No long er eligible based on patient's age to complete this topic IPV Vaccines Aged Out No longer eligi ble based on patient's age to complete this topic MMR Vaccines Aged Out No longer eligi ble based on patient's age to complete this topic Meningococcal ACWY Vaccine Aged Out N o longer eligible based on patient's age to complete this topic Meningococcal B Vaccine Aged Out No l onger eligible based on patient's age to complete this topic RSV Immunization Patients Under 20 months Aged Out No longer eligible b ased on patient's age to complete this topic Varicella Vaccines Aged Out No longer eligible based on patient's age to complete this topic Insurance [facility] Care Teams Associate Vice President Relationship Specialty Start Date End Date Physician, No Pcp PCP - General 10/17/24
--- OUTSIDE RECORDS SUMMARY | 2025-04-10 13:42 | XMS_ITS | Encounter Summary ---
Author Organization [facility] Address [address] [place] [id number] Phone Care Team Providers Care Machining Technician Name Role Phone Unknown, Unknown Primary Care Provider Sarahy reed Encounter Details Date Type Department Care Team (Late st Contact Info) Description 10/10/2023 Procedure [facility] [address] [place] [address] Social History Tobacco Use Types Packs/Day Years Used Date Smoking Tobacco: Never Assessed Education Answer Date Recorded Are you interested in more education? Not on flavio e 10/10/2023 Are you concerned about learning? Not on file 10/10/2023 No 10/10/2023 No 10/10/2023 Digital Access Answer Date Recorded No 10/10/2023 No 10/10/2023 Reliable internet access at home? Not on file 10/10/2023 Device with a working camera? Not on file Sex and Gender Information Value Date Recorded Sex Assigned at Male 10/10/2023 2:04 PM EST Legal Sex Male 2:22 AM EST Gender Identity Male 10/10/2023 2:04 PM EST Sexual Orientation Choose not to disclose 2023 2:04 PM EST documented as of this encounter Functional Status * Calculated C-SSRS Risk Score (Lifetime/Recent) Answer Date of Assessment Author Low Risk 10/10/2023 11:00 AM Gina Velázquez RN * [place] Suicide Severity Rating Scale (Screener/Recent Self-Report) Question Answer Date of Assessment Author 1. Wish to be (Past 1 Month) Yes 10/10/2023 11:00 AM Gina Velázquez RN 2. Non-Specific Active Suicidal Thoughts (Past 1 Month) No 10/10/2023 11:00 AM Gina Velázquez JOVITA 6. Suicidal Behavior (Lifetime) No 10/10/2023 11:00 AM Gina Velázquez RN documented as of this encounter Plan of Treatment Not on file documented as of this encounter Visit Diagnoses Not on filedocumented in this encounter Care Teams Machining Technician Relationship Specialty Start Date End Date Unknown, Unknown, PCP - General 10/10/23 documented as of this encounter Additional Source Comments The information contained in this document represents components of the legal health record. It is not the complete legal health record.[facility]
== END 2025-04-10 14:16 | disposition home or self-care (01) ==
LOC: HO.HMCFM 13:27
PROVIDERS: PCP Nurse Practitioner Family; Visit Provider Nurse Practitioner Family
DX: Z00.00 Encounter for general adult medical examination without abnormal findings (principal); F25.0 Schizoaffective disorder, bipolar type; Z12.11 Encounter for screening for malignant neoplasm of colon; Z23 Encounter for immunization

== ENCOUNTER → 2025-04-10 13:26 | Outpatient (BNVA) | payer MEDICARE, MEDICAID, SELFPAY | PROVIDERS: PCP Nurse Practitioner Family; Visit Provider Nurse Practitioner Family | DX: Z00.00 Encounter for general adult medical examination without abnormal findings (principal); Z23 Encounter for immunization; F25.0 Schizoaffective disorder, bipolar type | CPT/HCPCS: 90471; 90715; 96127; 99397 ==

== ENCOUNTER 2025-04-20 08:49 | Outpatient (REF) | payer MEDICARE, MEDICAID, SELFPAY ==
--- OUTSIDE RECORDS SUMMARY | 2025-04-20 09:10 | XMS_ITS | Clinical Summary ---
Author Organization [facility] Address [address] [place] [address] Phone Care Team Providers Care Surgical Instruments Inspector Name Role Phone Physician, No Pcp Primary [...] Date Comments Bipolar disorder (manic depr ession) ([facility] V24, [facility] V28) per detention paperwork Generalized anxiety disorder per detention paperwork Social History Tobacco Use Types Packs/Day [...] patient's age to complete this topic Insurance [facility] Care Teams Surgical Instruments Inspector Relationship Specialty Start Date End Date Physician, No Pcp PCP - General 10/17/24
--- OUTSIDE RECORDS SUMMARY | 2025-04-20 09:10 | XMS_ITS | Encounter Summary ---
Author Organization [facility] Address [address] [place] [id number] Phone Care Team Providers Care Racquet Maker Name Role Phone Unknown, Unknown Primary Care Provider Sarahy reed Encounter Details Date Type Department Care Team (Late st Contact Info) Description 10/10/2023 Procedure [facility] [address] [place] [address] Social History Tobacco Use Types Packs/Day Years [...] 10/10/2023 11:00 AM Gina Velázquez RN * [place] Suicide Severity Rating Scale (Screener/Recent Self-Report) Question [...] on filedocumented in this encounter Care Teams Racquet Maker Relationship Specialty Start Date End Date Unknown, Unknown, PCP - General 10/10/23 documented as of this encounter Additional Source Comments The information contained in this document represents components of the legal health record. It is not the complete legal health record.[facility]
[2025-04-20 11:31] LABS: MANUAL DIFF FLAG NO
[2025-04-20 11:43] LABS: Appearance Urine Clear; Glucose Urine UA Negative (Negative); Hematocrit 38.3 % (42.0-52.0); Hemoglobin 13.6 g/dl (14.0-18.0); Imm Gran Abs Auto 0.02 X10*3/uL (0.00-0.03); Imm Gran Pct Auto 0.4 % (0.0-0.4); Lymphocytes Absolute Auto 1.8 X10*3/uL (1.2-4.9); Mean Corpuscular HGB Conc 35.5 g/dl (31.0-36.0); Mean Corpuscular Hemoglobin 30.5 pg (27.0-33.0); Mean Corpuscular Volume 85.9 fL (80.0-98.0); NRBC Abs Auto 0.000 X10*3/uL (0.0-0.012); NRBC Pct Auto 0.0 /100WBC (0.0-0.2); PH 7.0 (5.0-9.0); Platelet Count 208 X10*3/uL (160-400); Red Blood Count 4.46 X10*6/uL (4.60-5.80); Specific Gravity - Urine 1.020 (1.005-1.025); UMIC TRIGGER UACC YES; White Blood Count 4.8 X10*3/uL (4.8-10.8)
[2025-04-20 12:07] LABS: Alanine Aminotransferase 12 U/L (0-40); Albumin Level 4.4 g/dL (3.5-5.0); Alkaline Phosphatase 88 U/L (39-117); Anion Gap 12 (12-20); Aspartate Amino Transferase 26 U/L (5-37); Blood Urea Nitrogen 10 mg/dL (9-16); Calcium 9.3 mg/dL (8.4-10.2); Carbon Dioxide 26 mmol/L (22-29); Chloride 93 mmol/L (96-108); Cholesterol 196 mg/dL (<200); Estimated Glomerular Filt Rate > 60; HDL Cholesterol 56 mg/dL (>40); Potassium 4.7 mmol/L (3.3-5.1); Sodium 126 mmol/L (135-145); Total Protein 6.7 g/dL (6.5-8.0); Triglycerides 100 mg/dL (<150)
[2025-04-26 23:28] LABS: PSA, Ultra Sensitive 1.79 ng/mL
== END 2025-04-20 08:50 | disposition home or self-care (01) ==
LOC: HO.WFDLDS 08:49
PROVIDERS: Visit Provider Nurse Practitioner Family
DX: Z00.00 Encounter for general adult medical examination without abnormal findings (principal); Z12.5 Encounter for screening for malignant neoplasm of prostate; Z13.6 Encounter for screening for cardiovascular disorders
CPT/HCPCS: 36415; 80053; 80061; 81001; 82043; 82306; 82570; 84153; 84443; 85025

== ENCOUNTER 2025-04-28 13:42 | Outpatient (AMB) | payer MEDICARE, MEDICAID, SELFPAY ==
--- OUTSIDE RECORDS SUMMARY | 2025-04-28 13:45 | XMS_ITS | Encounter Summary ---
Author Organization [facility] Address [address] [place] [phone] Phone Care Team Providers Care Patient Registration Clerk Name Role Phone Unknown, Unknown Primary Care Provider Sarahy reed Encounter Details Date Type Department Care Team (Late st Contact Info) Description 10/10/2023 Procedure [facility] [address] [place] [address] Social History Tobacco Use Types Packs/Day Years [...] 10/10/2023 11:00 AM Gina Velázquez RN * [place] Suicide Severity Rating Scale (Screener/Recent Self-Report) Question [...] on filedocumented in this encounter Care Teams Patient Registration Clerk Relationship Specialty Start Date End Date Unknown, Unknown, PCP - General 10/10/23 documented as of this encounter Additional Source Comments The information contained in this document represents components of the legal health record. It is not the complete legal health record.[facility]
--- OUTSIDE RECORDS SUMMARY | 2025-04-28 13:45 | XMS_ITS | Clinical Summary ---
Author Organization [facility] Address [address] [place] [address] Phone Care Team Providers Care Intramural Director Name Role Phone Physician, No Pcp Primary [...] Date Comments Bipolar disorder (manic depr ession) ([facility] V24, [facility] V28) per nursing home paperwork Generalized anxiety disorder per nursing home paperwork Social History Tobacco Use Types Packs/Day [...] patient's age to complete this topic Insurance [facility] Care Teams Intramural Director Relationship Specialty Start Date End Date Physician, No Pcp PCP - General 10/17/24
--- NOTE | 2025-04-28 13:51 | A.OFFPC_ITS ---
Vital Signs 04/28/25 13:55 Height 6 ft Weight 178 lb 6 oz BMI 24.2 BP 113/62 Blood Pressure Location Lt brachial Position Sitting Respiration 16 Pulse 102 H Pulse Source Pulse Oximeter Temp 98.3 F Temp Source Oral Pulse Oximetry (%) 97 Oxygen Delivery Method Room Air Intake Visit Reasons: Office visit 2-4 wks labs review Intake Note: patient here for 2-4 wks for lab review Community Health Program Representative Required: No Allergies No Known Allergies Allergy (Verified 04/28/25 13:53) Tobacco use date assessed: 04/28/25 Fall risk assessment: No Falls in past year Last assessed Fall Risk: 04/28/25 Dental Screening Dental Screen Date: 04/28/25 Did you have a dental visit in the last 12 months?: No Did you have a dental problem in the last 6 months where you did not have access to dental care?: No Was dental information given to patient?: No HPI HPI Comments History of Present Illness Details 69-year-old male, accompanied by group [facility] staff, presents for review of recent lab results. She admits to taking her medications as prescribed without adverse reactions. She offers no complaints and denies acute symptoms at this time. [facility] Medical History Heart murmur Hepatitis Surgical History H/O hernia repair History of cholecystectomy Family History Mother Cardiovascular disease Father Cardiovascular disease Brother No problems noted. Other Mental health disorder Substance abuse Social History (Updated 04/10/25 @ 13:42 by Letty Rader MA) Housing: Assisted Living Facility Alcohol intake: never Patient Tobacco Use Status: Former Tobacco user Tobacco use type: Cigarette e-Cigarette/Vaping Use: Never Used Second Hand Smoke Exposure: No service: Yes Current occupational status: disabled Current occupation: [employer] Cognitive needs: No Hearing needs: Yes Vision needs: Yes Questionnaire PHQ-9 Over the last 2 weeks, how often have you been bothered by any of the following problems? 1. Little interest or pleasure in doing things: more than half the days 2. Feeling down, depressed, or hopeless: more than half the days 3. Trouble falling or staying asleep, or sleeping too much: several days 4. Feeling tired or having little energy: not at all 5. Poor appetite or overeating: more than half the days 6. Feeling bad about yourself - or that you are a failure or have let yourself or your family down: several days 7. Trouble concentrating on things, such as reading the newspaper or watching television: several days 8. Moving or speaking so slowly that other people could have noticed. Or the opposite - being so fidgety or restless that you have been moving around a lot more than usual: more than half the days 9. Thoughts that you would be better off or of hurting yourself in some way: more than half the days Total score: 13 Source: Developed by Drs. Gonzalez Guillory, Radha Godwin, Dash Barlow and colleagues, with an educational carolynn from [employer]. Thrive Questionnaire Date Thrive assessed: 03/04/24 I am a: Patient What is your living situation today?: I have a steady place to live Within the past 12 months, did the food you bought not last and you didn't have the money to get more?: Never true Within the past 12 months, did you worry whether your food would run out before you got money to buy more?: Never true Do you have trouble paying for medicines?: No Do you have trouble getting transportation to medical appointments?: No Do you have trouble paying your heating and electricity bill?: No Do you have trouble taking care of your child, family member or friend?: No Do you have trouble with day-to-day activities such as bathing, preparing meals, shopping, managing finances, etc.?: No Are you currently unemployed and looking for a job?: No Are you interested in more education?: No Please select the resources that you would like help with: None Currently or been in a relationship where the following occur: No concerns reported THRIVE Score: 0 AUDIT C Alcohol Use Questionnaire (AUDIT-C) 1. How often do you have a drink containing alcohol?: Never Total Score: 0 LYRIC-7 AMB Questionnaire LYRIC-7 Date LYRIC - 7 assessed: 04/10/25 Feeling nervous, anxious, or on edge: 2 = More than half the days Not being able to stop or control worryin = More than half the days Worrying too much about different things: 2 = More than half the days Trouble relaxin = More than half the days Being so restless that it is hard to sit still: 2 = More than half the days Becoming easily annoyed or irritable: 2 = More than half the days Feeling afraid as if something awful might happen: 2 = More than half the days Total LYRIC-7 score (0-4 normal; 5-9 mild; 10-14 moderate; 15-21 severe): 14 Source: Developed by Drs. Gonzalez Guillory, Radha Godwin, Dash Barlow and colleagues, with an educational carolynn from [employer]. Review of Systems Const Details: Const Denies chills, Denies fatigue, Denies fever(s), Denies headache(s) and Denies weakness ENT Denies dizziness and Denies headache(s) Card Denies chest pain, Denies lightheadedness, Denies dyspnea and Denies other (Palpitations) Resp Denies cough, Denies dyspnea, Denies wheezing and Denies other ( shortness of breath) GI Denies abdominal pain, Denies melena, Denies hematochezia, Denies change in bowel habits, Denies dyspepsia and Denies nausea Denies hematuria and Denies dysuria Musc Denies abnormal gait, Denies myalgias, Denies arthralgias, Denies numbness and Denies tingling Skin/Breast Denies rash, Denies unusual bruising and Denies wounds Neuro Denies abnormal gait, Denies dizziness, Denies headache(s), Denies memory loss, Denies numbness, Denies Sensory deficit (Neuro), Denies tingling and Denies weakness Psych Denies anxiety, Denies depression, Denies memory loss Endo Denies cold intolerance, Denies fatigue, Denies heat intolerance, Denies polydipsia and Denies polyuria Aller/Immun Denies wheezing Physical exam (Primary Care) Vital Signs: Last Vital Signs Temp 98.3 F 04/28/25 13:55 Pulse 102 H 04/28/25 13:55 Resp 16 04/28/25 13:55 BP 113/62 04/28/25 13:55 Pulse Ox 97 04/28/25 13:55 Oxygen Delivery Method Room Air 04/28/25 13:55 BMI result Body Mass Index 24.2 Tobacco/Smoking Status: Tobacco use Status Tobacco use date assessed 04/28/25 04/28/25 13:59 Patient Tobacco Use Status Former Tobacco user 04/28/25 13:53 Tobacco use type Cigarette 04/28/25 13:53 e-Cigarette/Vaping Use Never Used 04/28/25 13:53 PHQ-9: PHQ-9 Score PHQ-9: Total score 13 04/28/25 13:53 Thrive Assessment: Date of Thrive Assessment Date Thrive assessed 03/04/24 04/28/25 13:53 Currently or been in a relationship where the following occur: No concerns reported Const Other: General: no acute distress and well developed Nutritional Appearance: well nourished Orientation/consciousness: patient oriented x3 HENMT Head: Yes normocephalic and Yes atraumatic Eyes General: appearance normal, both eyes and all related structures Pupils: Equal, round and reactive pupils present EOM: EOMs intact bilaterally Resp Effort & Inspection: normal respiratory effort Auscultation: clear to auscultation bilaterally Cardio Rate: regular rate Rhythm: regular rhythm Heart sounds: S1 normal heart sound present, S2 normal heart sound present, no gallops, no murmurs and no rubs GI Palpation (GI): No Abdominal aortic bruit present, Soft to palpation, nontender, No hepatosplenomegaly present and No Rebound tenderness present Auscultation: normal bowel sounds General: Yes no CVA tenderness Back/Spine/Pelvis Back: no CVA tenderness Cervical Spine: cervical ROM normal and No Cervical spine tenderness Thoracic/Lumbar Spine: thoraco-lumbar ROM normal, No pain with thoraco-lumbar ROM, No thoracic spinal tenderness and No lumbar spinal tenderness Extrem General: Yes normal to inspection, No edema and No calf tenderness Skin General: warm and dry. Normal skin color. Normal skin turgor Neuro General: patient oriented x3, gait normal and no focal neuro deficit Cranial nerves: Yes Equal, round and reactive pupils present Cognition (Neuro): normal cognition Gait exam (Neuro): Normal gait present Sensory Exam: No Sensory deficit (Neuro) Psych Appearance: grossly normal Affect: normal affect Attitude: cooperative Thought process: Normal thought process present Coding Level of Care Code Est Pt Level 3 (30611) Diagnoses Normocytic anemia D64.9 Hyponatremia E87.1 Elevated LDL cholesterol level E78.00 Assessment & Plan Assessment & Plan (1) Normocytic anemia: Code(s): D64.9 - Anemia, unspecified Category: Medical Plan: Recent RBC and H&H were slightly low, 4.6 and 13.6/38.3 respectively. MCV is normal. Will monitor CBC annually or as needed. Follow-up for an extended physical exam after 04/10/2026. Return sooner with symptoms or concerns. Verbalized understanding and agreed with the plan. (2) Hyponatremia: Code(s): E87.1 - Hypo-osmolality and hyponatremia Category: Medical Plan: Recent sodium level is low, 126. Likely due to high dose of oxcarbazepine, 450 mg twice daily; message was sent to his psychiatrist regarding this. Sodium chloride 1000 mg daily was ordered; he notes he has been taking the medication as prescribed. He did not perform repeat sodium level as planned before this visit. Advised to continue current treatment regimen. Perform repeat sodium blood work today. Will review results and make changes as needed. Verbalized understanding and agreed with the plan. (3) Elevated LDL cholesterol level: Code(s): E78.00 - Pure hypercholesterolemia, unspecified Category: Medical Plan: Recent LDL is slightly elevated, 120. Triglycerides, total cholesterol, and HDL levels are normal. Advised to limit foods high in saturated fat and avoid foods high in trans fat. Routine exercise encouraged. Will monitor lipid panel level annually or as needed. Verbalized understanding and agreed with the plan.
[2025-04-28 13:55] VITALS: BP 113/62; PULSE 102; RESP 16; TEMP 36.8; O2SAT 97; BMI 24.2
== END 2025-04-28 14:28 | disposition home or self-care (01) ==
LOC: HO.HMCFM 13:43
PROVIDERS: PCP Nurse Practitioner Family; Visit Provider Nurse Practitioner Family
DX: D64.9 Anemia, unspecified (principal); E87.1 Hypo-osmolality and hyponatremia; E78.00 Pure hypercholesterolemia, unspecified

== ENCOUNTER 2025-04-28 13:42 | Outpatient (REF) | payer MEDICARE, MEDICAID, SELFPAY ==
[2025-04-28 16:17] LABS: Chloride 95 mmol/L (96-108); Sodium 125 mmol/L (135-145)
[2025-04-28 18:15] LABS: Appearance Urine Clear; Glucose Urine UA Negative (Negative); PH 5.5 (5.0-9.0); Specific Gravity - Urine 1.025 (1.005-1.025); UMIC TRIGGER UACC YES
== END 2025-04-28 13:43 | disposition home or self-care (01) ==
LOC: HO.WFDLDS 13:42
PROVIDERS: PCP Nurse Practitioner Family; Visit Provider Nurse Practitioner Family
DX: Z00.00 Encounter for general adult medical examination without abnormal findings (principal); D64.9 Anemia, unspecified; E87.1 Hypo-osmolality and hyponatremia; E87.8 Other disorders of electrolyte and fluid balance, not elsewhere classified; F25.0 Schizoaffective disorder, bipolar type; E78.00 Pure hypercholesterolemia, unspecified
CPT/HCPCS: 36415; 81001; 82435; 84295; 99212

== ENCOUNTER 2025-05-10 09:05 | Outpatient (REF) | payer MEDICARE, MEDICAID, SELFPAY ==
--- OUTSIDE RECORDS SUMMARY | 2025-05-10 09:46 | XMS_ITS | Clinical Summary ---
Author Organization [facility] Address [address] [place] [address] Phone Care Team Providers Care Food Service Attendant Name Role Phone Physician, No Pcp Primary [...] Date Comments Bipolar disorder (manic depr ession) ([facility] V24, [facility] V28) per longterm paperwork Generalized anxiety disorder per longterm paperwork Social History Tobacco Use Types Packs/Day [...] 2005 Zoster Vaccines (1 of 2) 2005 Depression Screening 09/07/2024 Cholesterol Screening (Lipid Panel) 10/18/2024 Colorectal Cancer Screening: Colonoscopy 10/18/2024 Hepatitis C Screening 10/18/2024 Social Influencers of Health Screening 10/18/2024 COVID-19 Vaccine (4 - 2024-2 6 season) 2025 09/26/2021, 03/22/2021, 02/22/2021 Influenza Vaccine (#1) 2025 Falls Risk Assessment [...] patient's age to complete this topic Insurance [facility] Care Teams Food Service Attendant Relationship Specialty Start Date End Date Physician, No Pcp PCP - General 10/17/24
--- OUTSIDE RECORDS SUMMARY | 2025-05-10 09:46 | XMS_ITS | Clinical Summary ---
Author Organization [facility] Address [address] [address] Phone Care Team Providers Care New Home Sales Consultant Name Role Phone Unknown, Unknown Primary Care Provider Sarahy reed Allergies No known active allergies Social History Tobacco Use Types Packs/Day Years [...] not to disclose 2023 2:04 PM EST Last Filed Vital Signs Vital Sign Reading Time Taken Comments Blood Pressure 132/62 10/10/2023 2:30 PM EST Pulse 60 10/10/2023 2:30 PM EST Temperature 36.6 C (97.9 F) 10/10/2023 2:30 PM EST Respiratory Rate 18 10/10/2023 2:30 PM EST Oxygen Saturation 100% 10/10/2023 2:30 PM EST Inhaled Oxygen Concentration - - Weight - - Height - - Body Mass Index - - Plan of Treatment Health Maintenance Due Date Last Done Comments Adult Td,Tdap Booster 1955 LIPID PANEL 1955 DEPRESSION SCREENING 1967 SMOKING Hx and SMOKELESS TOB ACCO SCREENING 1968 HEPATITIS C SCREENING 1973 COLOGUARD 2000 COLONOSCOPY 2000 COLORECTAL CANCER SCREENING 2000 FIT TEST 2000 FOBT 2000 SIGMOIDOSCOPY 2000 VIRTUAL COLONOSCOPY 2000 PNEUMOCOCCAL VACCINES (50+ y ears) (1 of 1 - PCV) 2005 ZOSTER VACCINES (1 of 2) 2005 COVID-19 VACCINE (1 - 2023-2 5 season) 2024 RSV VACCINE (1 - 1-dose 75+ series) 2030 HEPATITIS A VACCINES Aged Out No long er eligible based on patient's age to complete this topic HIB VACCINES Aged Out No longer eligi ble based on patient's age to complete this topic MENINGOCOCCAL VACCINES (ACWY) Aged Out No longer eligible based on patient's age to complete this topic MENINGOCOCCAL VACCINES (B) Aged Out N o longer eligible based on patient's age to complete this topic Medical Devices Not on file Insurance [employer] GENERIC COMMERCIAL [place] GENER[place] COMM[place]CIAL [place] [employer] COMM[place]CIAL [place] [employer] COMMERCIAL HEALTH GENERIC COMMERCIAL [place] [employer] COMMERCIAL Care Teams New Home Sales Consultant Relationship Specialty Start Date End Date Unknown, Unknown, PCP - General 10/10/23 Additional Source Comments The information contained in this document represents components of the legal health record. It is not the complete legal health record.[facility]
--- OUTSIDE RECORDS SUMMARY | 2025-05-10 09:46 | XMS_ITS | Encounter Summary ---
Author Organization [facility] Address [address] [facility] [address] [place] [phone] Phone Care Team Providers Care Website/Blog Editor Name Role Phone Unknown, Unknown Primary Care Provider Sarahy reed Encounter Details Date Type Department Care Team (Late st Contact Info) Description 10/10/2023 Procedure [facility] [address] [place] [address] Social History Tobacco Use Types Packs/Day Years [...] 10/10/2023 11:00 AM Gina Velázquez RN * [place] Suicide Severity Rating Scale (Screener/Recent Self-Report) Question [...] on filedocumented in this encounter Care Teams Website/Blog Editor Relationship Specialty Start Date End Date Unknown, Unknown, PCP - General 10/10/23 documented as of this encounter Additional Source Comments The information contained in this document represents components of the legal health record. It is not the complete legal health record.[facility]
--- OUTSIDE RECORDS SUMMARY | 2025-05-10 09:46 | XMS_ITS | Encounter Summary ---
Author Organization [facility] Address [address] [facility] [address] [place] [id number] Phone Care Team Providers Care Edi Specialist Name Role Phone Unknown, Unknown Primary Care Provider Sarahy reed Encounter Details Date Type Department Care Team (Late st Contact Info) Description 10/10/2023 Procedure [facility] [address] [place] [address] Social History Tobacco Use Types Packs/Day Years [...] 10/10/2023 11:00 AM Gina Velázquez RN * [place] Suicide Severity Rating Scale (Screener/Recent Self-Report) Question [...] on filedocumented in this encounter Care Teams Edi Specialist Relationship Specialty Start Date End Date Unknown, Unknown, PCP - General 10/10/23 documented as of this encounter Additional Source Comments The information contained in this document represents components of the legal health record. It is not the complete legal health record.[facility]
[2025-05-10 11:38] LABS: Appearance Urine Clear; Glucose Urine UA Negative (Negative); PH 6.5 (5.0-9.0); Specific Gravity - Urine 1.020 (1.005-1.025); UMIC TRIGGER UACC YES
[2025-05-10 12:02] LABS: Chloride 103 mmol/L (96-108); Sodium 135 mmol/L (135-145)
== END 2025-05-10 09:06 | disposition home or self-care (01) ==
LOC: HO.WFDLDS 09:05
PROVIDERS: Visit Provider Nurse Practitioner Family
DX: Z00.00 Encounter for general adult medical examination without abnormal findings (principal); E87.8 Other disorders of electrolyte and fluid balance, not elsewhere classified; E87.1 Hypo-osmolality and hyponatremia
CPT/HCPCS: 36415; 81001; 82435; 84295

== ENCOUNTER 2025-06-20 09:48 | Outpatient (AMB) | payer MEDICARE, MEDICAID, SELFPAY ==
--- NOTE | 2025-06-20 09:49 | A.OFFPC_ITS ---
Vital Signs 06/20/25 09:58 Height 6 ft Weight 181 lb 6 oz BMI 24.6 BP 119/64 Blood Pressure Location Rt brachial Position Sitting Respiration 16 Pulse 89 Pulse Source Pulse Oximeter Temp 98.0 F Temp Source Oral Pulse Oximetry (%) 97 Oxygen Delivery Method Room Air Intake Visit Reasons: blood in urine /discomfort Intake Note: patient here c/o blood in urine/ discomfort patient was seen in urgent care on Thursday and was diagnoses with Dysuria and hematuria and was given phenazopyridine 200 mg, patient states he has no more pain and no more blood in urine Lab Rn Required: No Allergies No Known Allergies Allergy (Verified 06/20/25 10:41) Medication List - Last Reconciled 06/20/25 by Luisana Cloud CNP acetaminophen ER (Tylenol 8 Hour) 650 mg PO Q8H PRN olanzapine 20 mg PO BEDTIME olanzapine 10 mg PO BEDTIME oxcarbazepine 300 mg PO BID psyllium husk (Metamucil) 17 grams PO DAILY sodium chloride 1,000 mg PO DAILY 30 days trazodone 50 mg PO BEDTIME Tobacco use date assessed: 06/20/25 Fall risk assessment: 2 + Falls in past year Last assessed Fall Risk: 06/20/25 Dental Screening Dental Screen Date: 06/20/25 Did you have a dental visit in the last 12 months?: No Did you have a dental problem in the last 6 months where you did not have access to dental care?: No Was dental information given to patient?: No HPI HPI Comments History of Present Illness Details 70-year-old male, accompanied by group [facility], presents for dysuria and hematuria follow-up. He was evaluated at an urgent care 4 days ago and was prescribed Pyridium. Urine culture with [facility] on 06/17/2025 revealed UTI. He denies acute symptoms at this time. [facility] Medical History Heart murmur Hepatitis Surgical History H/O hernia repair History of cholecystectomy Family History Mother Cardiovascular disease Father Cardiovascular disease Brother No problems noted. Other Mental health disorder Substance abuse Social History (Updated 04/10/25 @ 13:42 by Letty Rader MA) Housing: Assisted Living Facility Alcohol intake: never Patient Tobacco Use Status: Former Tobacco user Tobacco use type: Cigarette e-Cigarette/Vaping Use: Never Used Second Hand Smoke Exposure: No service: Yes Current occupational status: disabled Current occupation: [employer] Current occupational exposures/hazards: No Cognitive needs: No Hearing needs: Yes Vision needs: Yes Questionnaire Thrive Questionnaire Date Thrive assessed: 04/28/25 I am a: Patient What is your living situation today?: I have a steady place to live Within the past 12 months, did the food you bought not last and you didn't have the money to get more?: Never true Within the past 12 months, did you worry whether your food would run out before you got money to buy more?: Never true Do you have trouble paying for medicines?: No Do you have trouble getting transportation to medical appointments?: No Do you have trouble paying your heating and electricity bill?: No Do you have trouble taking care of your child, family member or friend?: No Do you have trouble with day-to-day activities such as bathing, preparing meals, shopping, managing finances, etc.?: No Are you currently unemployed and looking for a job?: No Are you interested in more education?: No Please select the resources that you would like help with: None Currently or been in a relationship where the following occur: No concerns reported THRIVE Score: 0 LYRIC-7 AMB Questionnaire LYRIC-7 Date LYRIC - 7 assessed: 04/10/25 Source: Developed by Drs. Gonzalez Guillory, Radha Godwin, Dash Barlow and colleagues, with an educational carolynn from [employer] Review of Systems Const Details: Const Denies chills, Denies fatigue, Denies fever(s), Denies headache(s) and Denies weakness ENT Denies dizziness and Denies headache(s) Card Denies chest pain, Denies lightheadedness, Denies dyspnea and Denies other (Palpitations) Resp Denies cough, Denies dyspnea, Denies wheezing and Denies other ( shortness of breath) GI Denies abdominal pain, Denies melena, Denies hematochezia, Denies change in bowel habits, Denies dyspepsia and Denies nausea Reports as per HPI Physical exam (Primary Care) Vital Signs: Last Vital Signs Temp 98.0 F 06/20/25 09:58 Pulse 89 06/20/25 09:58 Resp 16 06/20/25 09:58 BP 119/64 06/20/25 09:58 Pulse Ox 97 06/20/25 09:58 Oxygen Delivery Method Room Air 06/20/25 09:58 BMI result Body Mass Index 24.6 Tobacco/Smoking Status: Tobacco use Status Tobacco use date assessed 06/20/25 06/20/25 09:57 Patient Tobacco Use Status Former Tobacco user 06/20/25 09:52 Tobacco use type Cigarette 06/20/25 09:52 e-Cigarette/Vaping Use Never Used 06/20/25 09:52 Thrive Assessment: Date of Thrive Assessment Date Thrive assessed 04/28/25 06/20/25 09:52 Currently or been in a relationship where the following occur: No concerns reported Const Other: General: no acute distress and well developed Nutritional Appearance: well nourished Orientation/consciousness: patient oriented x3 HENMT Head: Yes normocephalic and Yes atraumatic Eyes General: appearance normal, both eyes and all related structures Pupils: Equal, round and reactive pupils present EOM: EOMs intact bilaterally Resp Effort & Inspection: normal respiratory effort Auscultation: clear to auscultation bilaterally Cardio Rate: regular rate Rhythm: regular rhythm Heart sounds: S1 normal heart sound present, S2 normal heart sound present, no gallops, no murmurs and no rubs GI Palpation (GI): No Abdominal aortic bruit present, Soft to palpation, nontender, No hepatosplenomegaly present and No Rebound tenderness present Auscultation: normal bowel sounds General: Yes no CVA tenderness Coding Level of Care Code Est Pt Level 4 (80077) Diagnoses UTI (urinary tract infection) N39.0 Assessment & Plan Assessment & Plan (1) UTI (urinary tract infection): Code(s): N39.0 - Urinary tract infection, site not specified Category: Medical Plan: Macrobid mg twice daily x5 days ordered; advised to take as prescribed. Instructed on importance of good perineal hygiene. Follow-up as needed. Verbalized understanding and agreed with the plan. Medications: New nitrofurantoin monohyd/m-cryst 100 mg (Macrobid) must administer with a meal/food 100 mg PO Q12H 10 caps 0RF 5 days
[2025-06-20 09:58] VITALS: BP 119/64; PULSE 89; RESP 16; TEMP 36.7; O2SAT 97; BMI 24.6
--- OUTSIDE RECORDS SUMMARY | 2025-06-20 11:02 | XMS_ITS | Clinical Summary ---
Author Organization [facility] Address [address] [address] Phone Care Team Providers Care Parks And Recreation Manager Name Role Phone Unknown, Unknown Primary Care [...] 2005 ZOSTER VACCINES (1 of 2) 2005 INFLUENZA VACCINE (#1) 2025 COVID-19 VACCINE (1 - 2024-2 6 season) 2025 RSV VACCINE (1 - 1-dose 75+ series) [...] topic Medical Devices Not on file Insurance [employer] GENERIC COMMERCIAL [place] GENER[place] COMM[place]CIAL [place] [employer] COMM[place]CIAL [place] GENERIC [address] [place], [place] [address]HEALTH GENERIC COMMERCIAL [place] GENERIC COMMERCIAL Care Teams Parks And Recreation Manager Relationship Specialty Start Date End Date Unknown, Unknown, PCP - General 10/10/23 Additional Source Comments The information contained in this document represents components of the legal health record. It is not the complete legal health record.[facility]
--- OUTSIDE RECORDS SUMMARY | 2025-06-20 11:02 | XMS_ITS | Encounter Summary ---
Author Organization [facility] Address [address] [facility] [address] [place] [phone] Phone Care Team Providers Care Hand Ii Blocker Name Role Phone Unknown, Unknown Primary Care Provider Sarahy reed Encounter Details Date Type Department Care Team (Late st Contact Info) Description 10/10/2023 Procedure [facility] [address] [place] [address] Social History Tobacco Use Types Packs/Day Years [...] 10/10/2023 11:00 AM Gina Velázquez RN * [place] Suicide Severity Rating Scale (Screener/Recent Self-Report) Question [...] on filedocumented in this encounter Care Teams Hand Ii Blocker Relationship Specialty Start Date End Date Unknown, Unknown, PCP - General 10/10/23 documented as of this encounter Additional Source Comments The information contained in this document represents components of the legal health record. It is not the complete legal health record.[facility]
--- OUTSIDE RECORDS SUMMARY | 2025-06-20 11:02 | XMS_ITS | Encounter Summary ---
Author Organization [facility] Address [address] [facility] [address] [place] [id number] Phone Care Team Providers Care Electrical Project Manager Name Role Phone Unknown, Unknown Primary Care Provider Sarahy reed Encounter Details Date Type Department Care Team (Late st Contact Info) Description 10/10/2023 Procedure [facility] [address] [place] [address] Social History Tobacco Use Types Packs/Day Years [...] 10/10/2023 11:00 AM Gina Velázquez RN * [place] Suicide Severity Rating Scale (Screener/Recent Self-Report) Question [...] on filedocumented in this encounter Care Teams Electrical Project Manager Relationship Specialty Start Date End Date Unknown, Unknown, PCP - General 10/10/23 documented as of this encounter Additional Source Comments The information contained in this document represents components of the legal health record. It is not the complete legal health record.[facility]
--- OUTSIDE RECORDS SUMMARY | 2025-06-20 11:02 | XMS_ITS | Clinical Summary ---
Author Organization [facility] Address [address] [place] [address] Phone Care Team Providers Care Job Printer Apprentice Name Role Phone Physician, No Pcp Primary [...] depr ession) ([facility] V24, [facility] V28) per jail paperwork Generalized anxiety disorder per jail paperwork Social History Tobacco Use Types Packs/Day [...] Health Maintenance Due Date Last Done Comments Colorectal Cancer Screening: Colonoscopy 1955 DTaP,Tdap,and Td Vaccines (1 - Tdap) 1974 Pneumococcal Vaccine: 50+ Years (1 of 1 - PCV) 2005 Zoster Vaccines (1 of 2) 2005 Depression Screening 09/07/2024 Cholesterol Screening (Lipid Panel) 10/18/2024 Hepatitis C Screening 10/18/2024 Social Influencers [...] patient's age to complete this topic Insurance [facility] Care Teams Job Printer Apprentice Relationship Specialty Start Date End Date Physician, No Pcp PCP - General 10/17/24
== END 2025-06-20 10:50 | disposition home or self-care (01) ==
LOC: HO.HMCFM 09:48
PROVIDERS: PCP Nurse Practitioner Family; Visit Provider Nurse Practitioner Family
DX: N39.0 Urinary tract infection, site not specified (principal)

== ENCOUNTER → 2025-06-20 09:48 | Outpatient (BNVA) | payer MEDICARE, MEDICAID, SELFPAY | PROVIDERS: PCP Nurse Practitioner Family; Visit Provider Nurse Practitioner Family | DX: R30.0 Dysuria (principal); R31.9 Hematuria, unspecified; N39.0 Urinary tract infection, site not specified | CPT/HCPCS: 99212 ==

== ENCOUNTER 2025-07-10 10:48 | Outpatient (AMB) | payer MEDICARE, MEDICAID, SELFPAY ==
--- NOTE | 2025-07-10 10:50 | A.OFFPC_ITS ---
Vital Signs 07/10/25 11:00 Height 6 ft BP 131/65 Blood Pressure Location Lt brachial Position Sitting Respiration 16 Pulse 63 Pulse Source Pulse Oximeter Temp 98.3 F Temp Source Oral Pulse Oximetry (%) 96 Oxygen Delivery Method Room Air Intake Visit Reasons: Ongoing cold - See notes Intake Note: patient here C/O on going cold he has had it for a week an a half Combination Welder Required: No Allergies No Known Allergies Allergy (Verified 07/10/25 11:08) Medication List - Last Reviewed 07/10/25 by ILDA Rockwell acetaminophen ER (Tylenol 8 Hour) 650 mg PO Q8H PRN clonazepam mg PO fexofenadine (Allergy Relief (fexofenadine)) 180 mg PO DAILY olanzapine 20 mg PO BEDTIME olanzapine 10 mg PO BEDTIME oxcarbazepine 300 mg PO BID oxymetazoline 0.05% (Afrin Sinus (oxymetazoline)) 1 spray intranasal Q12H PRN polyethylene glycol 3350 (Miralax) 17 grams PO DAILY sodium chloride 1,000 mg PO DAILY 30 days trazodone 50 mg PO BEDTIME Tobacco use date assessed: 07/10/25 Fall risk assessment: 2 + Falls in past year Last assessed Fall Risk: 07/10/25 Dental Screening Dental Screen Date: 07/10/25 Did you have a dental visit in the last 12 months?: No Did you have a dental problem in the last 6 months where you did not have access to dental care?: No Was dental information given to patient?: No HPI HPI Comments History of Present Illness Details 70-year-old male, accompanied by group [facility] staff, presents with complaints of cold symptoms for the past 1 week. He reports intermittent cough with with phlgem. The color of the phlegm is unknown because he swallows it. No headache, sore throat, difficulty breathing, fever, body aches, fatigue. No known sick contact. He was seen at an urgent care 2 days ago and was prescribed afrin bid, saline spray tid, and fexofenadine 180mg daily. He has been feeling better with current treatment. He notes possible aggravating symptoms of being exposed to the weather when he goes to get coffee from [employer] every morning. He intends to to stay warm. He denies adequate hydration with water. [facility] Medical History Heart murmur Hepatitis Surgical History H/O hernia repair History of cholecystectomy Family History Mother Cardiovascular disease Father Cardiovascular disease Brother No problems noted. Other Mental health disorder Substance abuse Social History (Updated 04/10/25 @ 13:42 by Letty Rader MA) Housing: Assisted Living Facility Alcohol intake: never Patient Tobacco Use Status: Former Tobacco user Tobacco use type: Cigarette e-Cigarette/Vaping Use: Never Used Second Hand Smoke Exposure: No service: Yes Current occupational status: disabled Current occupation: [employer] Current occupational exposures/hazards: No Cognitive needs: No Hearing needs: Yes Vision needs: Yes Questionnaire Thrive Questionnaire Date Thrive assessed: 04/28/25 I am a: Patient What is your living situation today?: I have a steady place to live Within the past 12 months, did the food you bought not last and you didn't have the money to get more?: Never true Within the past 12 months, did you worry whether your food would run out before you got money to buy more?: Never true Do you have trouble paying for medicines?: No Do you have trouble getting transportation to medical appointments?: No Do you have trouble paying your heating and electricity bill?: No Do you have trouble taking care of your child, family member or friend?: No Do you have trouble with day-to-day activities such as bathing, preparing meals, shopping, managing finances, etc.?: No Are you currently unemployed and looking for a job?: No Are you interested in more education?: No Please select the resources that you would like help with: None Currently or been in a relationship where the following occur: No concerns reported THRIVE Score: 0 LYRIC-7 AMB Questionnaire LYRIC-7 Date LYRIC - 7 assessed: 04/10/25 Source: Developed by Drs. Gonzalez Guillory, Radha Godwin, Dash Barlow and colleagues, with an educational carolynn from [employer]. Review of Systems Const Details: Denies chills, Denies fatigue, Denies fever(s), Denies headache(s) and Denies weakness HEENT Denies change in vision, Denies dizziness, Denies headache(s), Denies hearing loss, Denies nasal congestion, Denies sinus pain, Denies sinus pressure and Denies sore throat Card Denies chest pain, Denies lightheadedness, Denies dyspnea and Denies other (palpitations) Resp Reports cough, Denies dyspnea and Denies wheezing GI Denies abdominal pain, Denies melena, Denies hematochezia, Denies change in bowel habits, Denies dyspepsia and Denies nausea Denies hematuria and Denies dysuria Musc Denies abnormal gait, Denies myalgias, Denies arthralgias, Denies numbness and Denies tingling Skin/Breast Denies rash, Denies unusual bruising and Denies wounds Neuro Denies abnormal gait, Denies dizziness, Denies headache(s), Denies memory loss, Denies numbness, Denies Sensory deficit (Neuro), Denies tingling and Denies weakness Psych Denies anxiety, Denies depression and Denies memory loss Endo Denies cold intolerance, Denies fatigue, Denies heat intolerance, Denies polydipsia and Denies polyuria Nicola/Lymph Denies easy bleeding and Denies easy bruising Aller/Immun Denies wheezing Physical exam (Primary Care) Vital Signs: Last Vital Signs Temp 98.3 F 07/10/25 11:00 Pulse 63 07/10/25 11:00 Resp 16 07/10/25 11:00 BP 131/65 07/10/25 11:00 Pulse Ox 96 07/10/25 11:00 Oxygen Delivery Method Room Air 07/10/25 11:00 Tobacco/Smoking Status: Tobacco use Status Tobacco use date assessed 07/10/25 07/10/25 11:04 Patient Tobacco Use Status Former Tobacco user 07/10/25 11:04 Tobacco use type Cigarette 07/10/25 11:04 e-Cigarette/Vaping Use Never Used 07/10/25 11:04 Thrive Assessment: Date of Thrive Assessment Date Thrive assessed 04/28/25 07/10/25 11:04 Currently or been in a relationship where the following occur: No concerns reported Const Other: General: no acute distress, well developed, alert and awake Nutritional Appearance: well nourished Orientation/consciousness: patient oriented x3 HENMT Head: Yes normocephalic and Yes atraumatic Ears: hearing grossly normal bilaterally and TM's normal bilaterally General nose exam: Normal external nose present and Normal nares present Mouth: Normal oral and palatal mucosa present and moist mucous membranes Teeth and gingiva: dentition normal Throat: Yes oropharynx normal Eyes Pupils: Equal, round and reactive pupils present and Pupil accommodation reflex normal EOM: EOMs intact bilaterally Neck Neck: Yes normal visual inspection, Yes no lymphadenopathy and Yes trachea midline Thyroid: Thyroid normal Carotids: no bruits Lymphatic: no lymphadenopathy noted Chest Chest palpation & inspection: normal inspection of the chest Resp Effort & Inspection: normal respiratory effort Auscultation: clear to auscultation bilaterally Cardio Rate: regular rate Rhythm: regular rhythm Heart sounds: S1 normal heart sound present, S2 normal heart sound present, no gallops, no murmurs and no rubs Bruits: no abdominal aortic bruits and no carotid bruits GI Palpation (GI): No Abdominal aortic bruit present, Soft to palpation, nontender, No hepatosplenomegaly present and No Rebound tenderness present Auscultation: normal bowel sounds General: Yes no CVA tenderness Back/Spine/Pelvis Back: no CVA tenderness Cervical Spine: cervical ROM normal and No Cervical spine tenderness Thoracic/Lumbar Spine: thoraco-lumbar ROM normal, No pain with thoraco-lumbar ROM, No thoracic spinal tenderness and No lumbar spinal tenderness Skin General: warm and dry. Normal skin color. Normal skin turgor Neuro General: patient oriented x3, gait normal and CN's II-XI intact bilaterally Cranial nerves: Yes Equal, round and reactive pupils present Cognition (Neuro): normal cognition Gait exam (Neuro): Normal gait present Motor exam (neuro): 5/5 motor strength present throughout Sensory Exam: No Sensory deficit (Neuro) Deep tendon reflexes (DTR's): Right patellar reflex intensity grade: 2+ and Left patellar reflex intensity grade: 2+ Extrem General: Yes normal to inspection, No edema and No calf tenderness Psych Appearance: grossly normal Affect: normal affect Attitude: cooperative Thought process: Normal thought process present Coding Level of Care Code Est Pt Level 3 (72708) Diagnoses Cough R05.9 Assessment & Plan Assessment & Plan (1) Cough: Code(s): R05.9 - Cough, unspecified Category: Medical Plan: Likely allergies. No evidence of bacterial or viral infection. Continue current treatment regimen. Adequate hydration with water encouraged. Follow-up as needed. Less understanding and agreed with the plan.
[2025-07-10 11:00] VITALS: BP 131/65; PULSE 63; RESP 16; TEMP 36.8; O2SAT 96
--- OUTSIDE RECORDS SUMMARY | 2025-07-10 13:17 | XMS_ITS | Clinical Summary ---
Author Organization [facility] Address [address] [address] Phone Care Team Providers Care Warp Dyeing Vat Tender Name Role Phone Unknown, Unknown Primary Care [...] topic Medical Devices Not on file Insurance [employer]ERCIAL [place] [employer] [place] [employer] [place] [employer] COMMERCIAL [address] [place], [place] [address]HEALTH GENERIC COMMERCIAL [place] [employer]CIAL Care Teams Warp Dyeing Vat Tender Relationship Specialty Start Date End Date Unknown, Unknown, PCP - General 10/10/23 Additional Source Comments The information contained in this document represents components of the legal health record. It is not the complete legal health record.[facility]
--- OUTSIDE RECORDS SUMMARY | 2025-07-10 13:17 | XMS_ITS | Encounter Summary ---
Author Organization [facility] Address [address] [facility] [address] [place] [phone] Phone Care Team Providers Care Mortgage Sales Manager Name Role Phone Unknown, Unknown Primary Care Provider Sarahy reed Encounter Details Date Type Department Care Team (Late st Contact Info) Description 10/10/2023 Procedure [facility] [address] [place] [address] Social History Tobacco Use Types Packs/Day Years [...] 10/10/2023 11:00 AM Gina Velázquez RN * [place] Suicide Severity Rating Scale (Screener/Recent Self-Report) Question [...] on filedocumented in this encounter Care Teams Mortgage Sales Manager Relationship Specialty Start Date End Date Unknown, Unknown, PCP - General 10/10/23 documented as of this encounter Additional Source Comments The information contained in this document represents components of the legal health record. It is not the complete legal health record.[facility]
--- OUTSIDE RECORDS SUMMARY | 2025-07-10 13:17 | XMS_ITS | Encounter Summary ---
Author Organization [facility] Address [address] [facility] [address] [place] [phone] Phone Care Team Providers Care Soil Conservation Teacher Name Role Phone Unknown, Unknown Primary Care Provider Sarahy reed Encounter Details Date Type Department Care Team (Late st Contact Info) Description 10/10/2023 Procedure [facility] [address] [place] [address] Social History Tobacco Use Types Packs/Day Years [...] 10/10/2023 11:00 AM Gina Velázquez RN * [place] Suicide Severity Rating Scale (Screener/Recent Self-Report) Question [...] on filedocumented in this encounter Care Teams Soil Conservation Teacher Relationship Specialty Start Date End Date Unknown, Unknown, PCP - General 10/10/23 documented as of this encounter Additional Source Comments The information contained in this document represents components of the legal health record. It is not the complete legal health record.[facility]
--- OUTSIDE RECORDS SUMMARY | 2025-07-10 13:17 | XMS_ITS | Data Portability ---
Author Organization [place] [facility] Address [address] [place] [id number] Care Team Providers Care Strapper And Buffer Name Role Phone [facility] Primary Care Provider [phone] N ([facility]) OTHER Assessment Encounter Date Assessment Date Assessment LastModified by Organization Details LastModified Time 03/17/2023 03/17/2023 Brief Overview: 67 year old M new to provider with previous medical history of htn, cerebral aneurysm, and schizoaffective d/o who states that he has had burning in esophagus for the past 3 days without sob, nausea, vomiting, changes in stools, fevers. Vital Signs: 98.2 F ear (36.78 C) 95 102 / 80 laying down, sitting up 116/ 84 16 93% Room Air at Rest repeat 95% Exam: Laying down in bed, able to sit up without issue.disheveled appearance. Speaks quietly, poor insight into situation or sx. Cardiac: RRR, no murmurs. NSR on EKG. Lungs: CTA, no wheezing or coughing. GI: grossly non tender. DDx considered, with rationale: ACS/NM- EKG shows NSR as verified with Dr. Adair. Discussed with patient that while EKG can be normal and sx are improving, unable to rule out NSTEMI without additional work up. Pt refuses the ED states that he will go in the next few days if sx persist or worsen. Staff state that he will not go to the doctor or ED at this time and he has been adamant in this decision. He has been refusing to go to primary care for several years. ALONZO- likely as current sx are described exactly as sx have been in the past per patient. Pt wants to try trial of acid reflux meds and to see if he feels better. He reports that he will go to the ED for blood work tomorrow if he feels worse. Esophagitis- possible with sx Proper Personal Protective Equipment (PPE), including gloves, eye protection and masks were donned and doffed appropriately and all equipment cleaned using approved technique with germicidal disposable wipes prior to and after care of this patient according to [facility]'s infection prevention protocols. Time On Scene with Patient: 00:36:25 [email or web address] Not available 03/17/2023 15:06:25 Plan of Treatment Reminders Order Date Submit Date Provider Last Modified By Organization Details Last Modified Time Details Appointments None recorded. Lab None recorded. Referral None recorded. Procedures None recorded. Surgeries None recorded. Imaging None recorded. Medication Orders omeprazole 20 mg capsule,del ayed release 2022 023 [facility] - [place], [place], [address], [place], [address], 15:01:35 Patient TargetsNo targets recorded. Patient Instructions Encounter Date Encounter Id Patient Instructions Last Modified By Organization Details Last Modified Time 03/17/2023 [id number] Acute Nausea and Vomiting/Diarrhea BASIC INFORMATION Acute nausea and vomiting often start suddenly, worsen quickly, and last a few hours to 24 hours. Nausea and vomiting most often occur together, although they can occur alone. Cases of acute nausea and vomiting are often from gastrointestinal viruses such as norovirus, rotavirus and influenza. Less often it can be caused by toxins released from food that g oes bad as well as some types of bacteria and parasites. Diarrhea can also occur. Your nurse practitioner will conduct a careful history to help determine if you have one of the more serious causes. The cause of your nausea and vomiting may be unknown. INSTRUCTIONS Medicines: 1) Anti-nausea: You may have been given a prescription for an anti nausea medicine such as Zofran, Phenergan or Compazine. These can be used every 6-8 hours to help prevent nausea and vomiting. They can make you sleepy, so do not drive after taking them. Be sure to read all of the drug information from the pharmacy. 2) Tylenol: Low grade fever is common with acute nausea and vomiting. You may use Tylenol, per the recommended dosing on the label, to help control fever. If you have liver disease, do not use Tylenol. Ask your AIRCRAFT MACHINIST HELPER how to address fever if you are concerned about Tylenol use. 3) Anti-diarrheal medicines: These are available [id number], but in some cases are not recommended and can even worsen some cases of intestinal problems. Ask your AIRCRAFT MACHINIST HELPER if you should use them. In children under 12, the only anti-diarrheal that should be considered is Kaopectate. Diet: 1) For the next 12-24 hours, take clear liquids only. No dairy and no caffeinated beverages. After you have not vomited for a complete hour (either with or without the help of the anti-nausea medicine), begin by taking one tablespoon of clear liquid every 15 minutes for one hour. If you are able to tolerate this, you may increase the amount to 2 tablespoons every hour for the next 2 hours. 2) Clear liquids such as gatorade, pedialyte or broth are recommended because of the electrolytes and sugars that will help replenish the losses from vomiting and diarrhea. 3) If you are able to tolerate clear liquids as instructed above, you may begin to take a bland diet. Plain pasta/noodles or toast are suggestions. If you have had diarrhea, bananas, rice and applesauce are suggested as these can help make the stools more solid. Avoid greasy, fatty or fried foods FOLLOW UP You should make an appointment to see your primary care provider within 24 hours or sooner for worsening condition as described below. If you do not have a primary care doctor, you should follow up with one of the PCP suggestions from [facility]. SEEK CARE IMMEDIATELY IF: 1) You are still unable to tolerate any oral intake after 24 hours 2) You have blood in your vomit or stool 3) You develop severe abdominal pain that does not go away after an episode of vomiting or diarrhea 4) You have severe dizziness, heart palpitations or are passing out 5) You develop severe muscle cramps or weakness 6) You have not made urine in over 24 hours If you develop any new or worsening symptoms and need after hours care, please go to nearest ER and/or call 911. If you have additional concerns or develop a change in your condition between 8am-10pm, please call [facility] at [phone] to help navigate your care. [email or web address] Not available 03/17/2023 13:51:30 Reason for Referral None Reported. Results Created Date Observation Date Name Description Value Unit Range Abnormal Flag Note LastModifiedBy Organization Detail LastModifiedTime 03/17/20 elect cher diogr am No observ ation record ed. [email or web address] Not Available 2022 14:22:28 03/17/20 23 elect cher diogr am No observ ation record ed. [email or web address] Not Available 2022 15:07:25 Result Notes None recorded. Procedures Surgical History Date Name Laterality Status Provider Name and Address Organization Details Recorded Time 023 ECG Interpretation - completed Katharine Vidal NP [address], [place], [address], [place] [facility] 03/17/2023 15:07:06 Cholecystectomy completed Katharine Vidal NP [address], [place], [address], [place] [facility] 03/17/2023 13:48:57 Imaging Results None recorded. Procedure Notes None recorded. Medical Equipment None Reported. Allergies No known drug allergies Medications Name Sig Start Date Stop Date Status Note LastModified by Organization Details LastModified Time oxcarbazepi ne 150 mg tablet Take 1 tablet by mouth twice a day for anxiety and manic episodes active Not Available Not Available No t Available clozapine 100 mg tablet Take 1 tablet 3 times a day by oral route. active Not Available Not Available No t Available hydroxyzine HCl 50 mg tablet Take 1 tablet by mouth twice a day as needed one in the morning and one in the afternoon as needed for anxiety, separate doses by 4 hours active Not Available Not Available No t Available oxcarbazepi ne 300 mg tablet Take 1 tablet by mouth twice a day for anxiety and manic episodes active Not Available Not Available No t Available docusate sodium 100 mg capsule Take 1 capsule by mouth twice a day for constipat ion active Not Available Not Available No t Available omeprazole 20 mg capsule,del ayed release TAKE 1 CAPSULE BY MOUTH ONCE every DAY active Not Available Not Available No t Available clozapine 03/17 completed Not Available Not Available Not Available ClearLax 17 gram/dose oral powder Take 1 scoop dissolved in water once a day take once daily dissolved in any liquid, hold after an episode of diarrhea active Not Available Not Available No t Available BinaxNOW COVID-19 Ag Self Test kit TEST DIRECTED TODAY active Not Available Not Available No t Available Vitals Date Recorded Heart rate Respiratory rate Body temperature Oxygen saturation Oxygen saturation in Arterial blood by Pulse oximetry Systolic And Diastolic Provider Name and Address Organization Details Last Updated DateTime 3 95 /min 16 /min 98.2 [degF] 93 % 93 % 102/80 mm[Hg] Not Available [facility] 3 13:55:34 Social History Question Answer Notes LastModified by [employer] Details LastModified Time Tobacco Smoking Status Former Smoker Katharine Vidal NP [address], [place], [address], [place] [facility] 03/17/2023 13:49:07 Excessive Alcohol Or Drug Use No [email or web address] Information not available 03/17/2023 Is This Patient In Hospice? No Information not available 03/17/2023 ADL: Do You Need Help With Daily Activities Such As Bathing, Preparing Meals, Dressing, Or Cleaning? No [email or web address] Information not available 03/17/2023 Sex: Unknown Functional Status Question Answer Note LastModified by [employer] Details LastModified Time Do you use any illicit or recreational drugs? No Information not available 03/17/2023 What is your level of alcohol consumption? None [email or web address] Information not available 03/17/2023 Mental Status None recorded. Family History Relationship Description Onset Age of this Age Resolved Age Notes LastModified by Organization Details LastModified Time Mother Heart disease Not available 2022 13:50:10 Medical History No medical history recorded. Past Encounters Encounter ID Performer Location Encounter Start Date Encounter Closed Date Diagnosis/Indication Diagnosis SNOMED-CT Code Diagnosis ICD10 Code Diagnosis IMO Codes Diagnosis Note [id number] Katharine Vidal NP [facility] [address] [place] [address] 03/17/2023 13:33:13 03/18/2023 15:57:29 Gastroesophageal reflux disease 814932372 K21.9 Status of condition: Exacerbati on/Acute on chronic. Testing/Re sults: EKG Discussion : Unable to rule out NSTEMI without additional blood work in elderly patient with chest pain/ reflux sx. Pt adamantly denies the ED and does not want DH/ staff to call EMS. He understand s that he could be having a heart attack and will go to the ED tomorrow if he feels this is the right choice. Continues to state he is not having an NM and just his normal reflux that is because I am too stressed. Pt does have improving sx with current episode similar to episodes of reflux in the past. Reasonable to trial outpatient therapy with nutritonal changes. Will rx 30 days of antacid and instructed pt to follow up with PCP which he refused.Up dated staff on POC and made aware that if his sx persist to reconsider the ED Plan, Medication Management & Follow-up recommenda tions:omep razole 20 mg QDED with worsening sxDiscusse d low acidity diet, avoid laying flat after meals Health Concerns Section Related Observation LastModified by Organization Detai ls LastModified Time None Recorded Concern Status LastModified by Organization Details LastModified Time None Recorded Advance Directives Directive None Recorded Payers Insurance Date Sequence Insurance Name Policy Number Policy [place] Covered Member ID [place] Member ID Guarantor Name 03/16/2023 1 [place] [employer] Eligio Qureshi [id number] Eligio Qureshi 03/16/2023 1 [place] [facility] Eligio Qureshi [id number] Eligio Qureshi 03/16/2023 1 *SELF PAY* Eligio Qureshi [id number] Eligio Qureshi Notes Date Note Type Note Provider Name and Address Organization Details Recorded Time 03/17/2023 text/html General HPI Temp late - DHReported by Patient Pt resides in correction due to history of depression and schizoaffective d/o who states that over the past 3 days has had burning in esophagus similar to multiple past episodes of ALONZO. Pt states that he sometimes has nausea but not currently. Not eating as much as usual due to burning in esophagus. Pt states that when he gets mentally stressed the reflux gets worse and recently feels as though he is more stressed than usual. Has not tried anything OTC but zantac has worked in the past. Staff at correction report that he refuses most medical treatment and is able to make his own medical decisions. Pt denies current nausea, fever, vomiting, abd pain, changes in bowel habits, dysuria. Is having normal BMs, passing flatus and belching without issue.History mostly obtained from patient, staff with some assistance (meds, medical history). Katharine Vidal NP [address] [place] [address] [place], [place], [address], [place] [facility] 03/17/2023 15:11:38
--- OUTSIDE RECORDS SUMMARY | 2025-07-10 13:17 | XMS_ITS | Clinical Summary ---
Author Organization [facility] Address [address] [place] [address] Phone Care Team Providers Care Client Services Account Manager Name Role Phone Physician, No Pcp Primary [...] Date Comments Bipolar disorder (manic depr ession) ([facility] V24, [facility] V28) per usp paperwork Generalized anxiety disorder per usp paperwork Social History Tobacco Use Types Packs/Day [...] patient's age to complete this topic Insurance [facility] Care Teams Client Services Account Manager Relationship Specialty Start Date End Date Physician, No Pcp PCP - General 10/17/24
== END 2025-07-10 11:21 | disposition home or self-care (01) ==
LOC: HO.HMCFM 10:49
PROVIDERS: PCP Nurse Practitioner Family; Visit Provider Nurse Practitioner Family
DX: R05.9 Cough, unspecified (principal)

== ENCOUNTER → 2025-07-10 10:48 | Outpatient (BNVA) | payer MEDICARE, MEDICAID, SELFPAY | PROVIDERS: PCP Nurse Practitioner Family; Visit Provider Nurse Practitioner Family | DX: R05.9 Cough, unspecified (principal) | CPT/HCPCS: 99212 ==

== ENCOUNTER 2025-07-25 11:36 | Outpatient (AMB) | payer MEDICARE, MEDICAID, SELFPAY ==
--- NOTE | 2025-07-25 11:40 | A.OFFPC_ITS ---
Vital Signs 07/25/25 11:47 Height 6 ft Weight 187 lb 2 oz BMI 25.4 BP 105/63 Blood Pressure Location Lt brachial Position Sitting Respiration 16 Pulse 84 Pulse Source Pulse Oximeter Temp 97.6 F Temp Source Oral Pulse Oximetry (%) 95 Oxygen Delivery Method Room Air Intake Visit Reasons: Discomfort while swallowing Intake Note: patient here c/o having discomfort while swollen. patient said he had a cold a couple wks ago and could not swallow but he is better now Dietitian Required: No Allergies No Known Allergies Allergy (Verified 07/25/25 12:01) Medication List - Last Reconciled 07/25/25 by Luisana Cloud CNP acetaminophen ER (Tylenol 8 Hour) 650 mg PO Q8H PRN clonazepam mg PO fexofenadine (Allergy Relief (fexofenadine)) 180 mg PO DAILY olanzapine 20 mg PO BEDTIME olanzapine 10 mg PO BEDTIME oxcarbazepine 300 mg PO BID oxymetazoline 0.05% (Afrin Sinus (oxymetazoline)) 1 spray intranasal Q12H PRN polyethylene glycol 3350 (Miralax) 17 grams PO DAILY sodium chloride 1,000 mg PO DAILY 30 days trazodone 50 mg PO BEDTIME Tobacco use date assessed: 07/25/25 Fall risk assessment: 2 + Falls in past year Last assessed Fall Risk: 07/25/25 Dental Screening Dental Screen Date: 07/25/25 Did you have a dental visit in the last 12 months?: Yes Did you have a dental problem in the last 6 months where you did not have access to dental care?: No Was dental information given to patient?: Patient has dentist HPI HPI Comments History of Present Illness Details 70-year-old male, accompanied by [facility] staff, presents with complaints of coughing while eating. He states that his symptoms have compl etely resolved. He denies difficulty swallowing, pain with swallowing, or difficulty breathing. He notes that he noticed his right eye is red when he looked at the mirror about 2 days ago. He denies pain, visual disturbances, or discharge from the eye. [facility]LY [facility] Medical History Heart murmur Hepatitis Surgical History H/O hernia repair History of cholecystectomy Family History Mother Cardiovascular disease Father Cardiovascular disease Brother No problems noted. Other Mental health disorder Substance abuse Social History (Updated 04/10/25 @ 13:42 by Letty Rader MA) Housing: Assisted Living Facility Alcohol intake: never Patient Tobacco Use Status: Former Tobacco user Tobacco use type: Cigarette e-Cigarette/Vaping Use: Never Used Second Hand Smoke Exposure: No service: Yes Current occupational status: disabled Current occupation: [employer] Current occupational exposures/hazards: No Cognitive needs: No Hearing needs: Yes Vision needs: Yes Questionnaire Thrive Questionnaire Date Thrive assessed: 04/28/25 I am a: Patient What is your living situation today?: I have a steady place to live Within the past 12 months, did the food you bought not last and you didn't have the money to get more?: Never true Within the past 12 months, did you worry whether your food would run out before you got money to buy more?: Never true Do you have trouble paying for medicines?: No Do you have trouble getting transportation to medical appointments?: No Do you have trouble paying your heating and electricity bill?: No Do you have trouble taking care of your child, family member or friend?: No Do you have trouble with day-to-day activities such as bathing, preparing meals, shopping, managing finances, etc.?: No Are you currently unemployed and looking for a job?: No Are you interested in more education?: No Please select the resources that you would like help with: None Currently or been in a relationship where the following occur: No concerns reported THRIVE Score: 0 LYRIC-7 AMB Questionnaire LYRIC-7 Date LYRIC - 7 assessed: 04/10/25 Source: Developed by Drs. Gonzalez Guillory, Radha Godwin, Dash Barlow and colleagues, with an educational carolynn from [employer]. Review of Systems Const Details: Const Denies chills, Denies fatigue, Denies fever(s), Denies headache(s) and Denies weakness ENT Reports as per HPI Card Denies chest pain, Denies lightheadedness, Denies dyspnea and Denies other (Palpitations) Resp Denies cough, Denies dyspnea, Denies wheezing and Denies other ( shortness of breath) GI Denies abdominal pain, Denies melena, Denies hematochezia, Denies change in bowel habits, Denies dyspepsia and Denies nausea Denies hematuria and Denies dysuria Musc Denies abnormal gait, Denies myalgias, Denies arthralgias, Denies numbness and Denies tingling Skin/Breast Denies rash, Denies unusual bruising and Denies wounds Neuro Denies abnormal gait, Denies dizziness, Denies headache(s), Denies memory loss, Denies numbness, Denies Sensory deficit (Neuro), Denies tingling and Denies weakness Psych Denies anxiety, Denies depression, Denies memory loss Endo Denies cold intolerance, Denies fatigue, Denies heat intolerance, Denies polydipsia and Denies polyuria Aller/Immun Denies wheezing Physical exam (Primary Care) Vital Signs: Last Vital Signs Temp 97.6 F 07/25/25 11:47 Pulse 84 07/25/25 11:47 Resp 16 07/25/25 11:47 BP 105/63 07/25/25 11:47 Pulse Ox 95 07/25/25 11:47 Oxygen Delivery Method Room Air 07/25/25 11:47 BMI result Body Mass Index 25.4 Tobacco/Smoking Status: Tobacco use Status Tobacco use date assessed 07/25/25 07/25/25 11:52 Patient Tobacco Use Status Former Tobacco user 07/25/25 11:41 Tobacco use type Cigarette 07/25/25 11:41 e-Cigarette/Vaping Use Never Used 07/25/25 11:41 Thrive Assessment: Date of Thrive Assessment Date Thrive assessed 04/28/25 07/25/25 11:41 Currently or been in a relationship where the following occur: No concerns reported Const Other: General: no acute distress and well developed Nutritional Appearance: well nourished Orientation/consciousness: patient oriented x3 HENMT Head is normocephalic Bilateral ear canal and TM are normal Nasal turbinates and oropharynx are pink and moist Sinuses are nontender with palpation No auricular or cervical lymphadenopathy Eyes General: appearance normal, both eyes and all related structures. [place] conjunctiva of the right eye, no drainage or trauma noted Pupils: Equal, round and reactive pupils present EOM: EOMs intact bilaterally Resp Effort & Inspection: normal respiratory effort Auscultation: clear to auscultation bilaterally Cardio Rate: regular rate Rhythm: regular rhythm Heart sounds: S1 normal heart sound present, S2 normal heart sound present, no gallops, no murmurs and no rubs Extrem General: Yes normal to inspection, No edema and No calf tenderness Skin General: warm and dry. Normal skin color. Normal skin turgor Neuro General: patient oriented x3, gait normal and no focal neuro deficit Cranial nerves: Yes Equal, round and reactive pupils present Cognition (Neuro): normal cognition Gait exam (Neuro): Normal gait present Sensory Exam: No Sensory deficit (Neuro) Psych Appearance: grossly normal Affect: normal affect Attitude: cooperative Thought process: Normal thought process present Coding Level of Care Code Est Pt Level 3 (09664) Diagnoses Cough R05.9 Conjunctivitis H10.9 Assessment & Plan Assessment & Plan (1) Cough: Code(s): R05.9 - Cough, unspecified Category: Medical Plan: Resolved Adequate hydration encouraged. Follow-up as needed. Verbalized understanding and agreed with the plan. (2) Conjunctivitis: Code(s): H10.9 - Unspecified conjunctivitis Category: Medical Plan: [place] conjunctiva of the right eye, no drainage or trauma noted. Likely viral or allergic conjunctivitis. Erythromycin ointment as prescribed. Apply warm compresses a few times daily. Follow-up with worsening or new symptoms. Verbalized understanding and agreed with plan. Medications: New erythromycin Apply to right eye 0.5 inches ophthalmic (eye) TID 3.5 grams 0RF 7 days
[2025-07-25 11:47] VITALS: BP 105/63; PULSE 84; RESP 16; TEMP 36.4; O2SAT 95; BMI 25.4
== END 2025-07-25 12:49 | disposition home or self-care (01) ==
LOC: HO.HMCFM 11:36
PROVIDERS: PCP Nurse Practitioner Family; Visit Provider Nurse Practitioner Family
DX: R05.9 Cough, unspecified (principal); H10.9 Unspecified conjunctivitis

== ENCOUNTER 2025-07-25 11:36 | Outpatient (REF) | payer MEDICARE, MEDICAID, SELFPAY ==
[2025-07-25 18:52] LABS: Anion Gap 12 (12-20); Blood Urea Nitrogen 11 mg/dL (9-16); Calcium 8.3 mg/dL (8.4-10.2); Carbon Dioxide 22 mmol/L (22-29); Chloride 94 mmol/L (96-108); Estimated Glomerular Filt Rate > 60; Potassium 4.0 mmol/L (3.3-5.1); Sodium 124 mmol/L (135-145)
--- OUTSIDE RECORDS SUMMARY | 2025-07-26 07:52 | XMS_ITS | Encounter Summary ---
Author Organization [facility] Address [address] [place] [address] Phone Care Team Providers Care School Lunch Manager Name Role Phone Unknown, Unknown Primary Care Provider Sarahy reed Encounter Details Date Type Department Care Team (Late st Contact Info) Description 10/10/2023 Procedure [facility] [address] [place] [address] Social History Tobacco Use Types Packs/Day Years [...] 10/10/2023 11:00 AM Gina Velázquez RN * [place] Suicide Severity Rating Scale (Screener/Recent Self-Report) Question [...] on filedocumented in this encounter Care Teams School Lunch Manager Relationship Specialty Start Date End Date Unknown, Unknown, PCP - General 10/10/23 documented as of this encounter Additional Source Comments The information contained in this document represents components of the legal health record. It is not the complete legal health record.[facility]
--- OUTSIDE RECORDS SUMMARY | 2025-07-26 07:52 | XMS_ITS | Encounter Summary ---
Author Organization [facility] Address [address] [place] [phone] Phone Care Team Providers Care Mixing Pan Tender Name Role Phone Unknown, Unknown Primary Care Provider Sarahy reed Encounter Details Date Type Department Care Team (Late st Contact Info) Description 10/10/2023 Procedure [facility] [address] [place] [address] Social History Tobacco Use Types Packs/Day Years Used Date Smoking Tobacco: Never Assessed Education Answer Date Recorded Are you interested in more education? Not on flavoi e 10/10/2023 Are you concerned about learning? [...] 10/10/2023 11:00 AM Gina Velázquez RN * [place] Suicide Severity Rating Scale (Screener/Recent Self-Report) Question [...] on filedocumented in this encounter Care Teams Mixing Pan Tender Relationship Specialty Start Date End Date Unknown, Unknown, PCP - General 10/10/23 documented as of this encounter Additional Source Comments The information contained in this document represents components of the legal health record. It is not the complete legal health record.[facility]
--- OUTSIDE RECORDS SUMMARY | 2025-07-26 07:53 | XMS_ITS | Clinical Summary ---
Author Organization [facility] Address [address] [place] [address] Phone Care Team Providers Care Selector Packer Name Role Phone Physician, No Pcp Primary [...] Date Comments Bipolar disorder (manic depr ession) ([facility] V24, [facility] V28) [place] Generalized anxiety disorder per [place] Social History Tobacco Use Types Packs/Day [...] patient's age to complete this topic Insurance [facility] Care Teams Selector Packer Relationship Specialty Start Date End Date Physician, No Pcp PCP - General 10/17/24
--- OUTSIDE RECORDS SUMMARY | 2025-07-26 07:53 | XMS_ITS | Data Portability ---
Author Organization [place] [facility] Address [address] [place] [phone] Care Team Providers Care Machine Washer Name Role Phone [facility] Primary Care Provider N ([facility] OTHER Assessment Encounter Date Assessment Date [...] grossly non tender. DDx considered, with rationale: ACS/SD- EKG shows NSR as verified with Dr. [...] after care of this patient according to [facility]'s infection prevention protocols. Time On Scene with Patient: 00:36:25 [email or web address] Not available 03/17/2023 15:06:25 Plan of Treatment Reminders Order Date Submit Date Provider Last Modified By Organization Details Last Modified Time Details Appointments None recorded. Lab None recorded. Referral None recorded. Procedures None recorded. Surgeries None recorded. Imaging None recorded. Medication Orders omeprazole 20 mg capsule,del ayed release 2022 023 [facility] - [place], [place], [address], [place], [address], 15:01:35 Patient TargetsNo targets recorded. Patient Instructions Encounter Date Encounter Id Patient Instructions Last Modified By Organization Details Last Modified Time 03/17/2023 [id number] Acute Nausea and Vomiting/Diarrhea BASIC INFORMATION Acute [...] disease, do not use Tylenol. Ask your TRANSVERSE ABDOMINAL MUSCLE NURSE how to address fever if you are concerned about Tylenol use. 3) Anti-diarrheal medicines: These are available [id number], but in some cases are not recommended and can even worsen some cases of intestinal problems. Ask your TRANSVERSE ABDOMINAL MUSCLE NURSE if you should use them. In children [...] with one of the PCP suggestions from [facility]. SEEK CARE IMMEDIATELY IF: 1) You are [...] in your condition between 8am-10pm, please call [facility] at [phone] to help navigate your care. [email or web address] Not available 03/17/2023 13:51:30 Reason for Referral None Reported. Results Created Date Observation Date Name Description Value Unit Range Abnormal Flag Note LastModifiedBy Organization Detail LastModifiedTime 03/17/20 elect cher diogr am No observ ation record ed. Not Available 2022 14:22:28 03/17/20 23 elect cher diogr am No observ ation record ed. Not Available 2022 15:07:25 Result Notes None recorded. Procedures Surgical History Date Name Laterality Status Provider Name and Address Organization Details Recorded Time 023 ECG Interpretation - completed Katharine Vidal NP [address], [place], [address], [place] [facility] 03/17/2023 15:07:06 Cholecystectomy completed Katharine Vidal NP [address], [place], [address], [place] [facility] 03/17/2023 13:48:57 Imaging Results [...] % 93 % 102/80 mm[Hg] Not Available [facility] 3 13:55:34 Social History Question Answer Notes LastModified by [employer] Details LastModified Time Tobacco Smoking Status Former Smoker Katharine Vidal NP [address], [place], [address], [place] [facility] 03/17/2023 13:49:07 Excessive Alcohol Or Drug Use No [email or web address] Information not available 03/17/2023 Is This Patient In Hospice? No [email or web address] Information not available 03/17/2023 ADL: Do You Need Help With Daily Activities Such As Bathing, Preparing Meals, Dressing, Or Cleaning? No Information not available 03/17/2023 Sex: Unknown Functional Status Question Answer Note LastModified by [employer] Details LastModified Time Do you use any illicit or recreational drugs? No [email or web address] Information not available 03/17/2023 What is your level of alcohol consumption? None [email or web address] Information not available 03/17/2023 Mental Status None recorded. Family History Relationship Description Onset Age of this Age Resolved Age Notes LastModified by Organization Details LastModified Time Mother Heart disease [email or web address] Not available 2022 13:50:10 Medical History No medical history recorded. Past Encounters Encounter ID Performer Location Encounter Start Date Encounter Closed Date Diagnosis/Indication Diagnosis SNOMED-CT Code Diagnosis ICD10 Code Diagnosis IMO Codes Diagnosis Note [id number] Katharine Vidal NP [facility]NOTE 3] - HOME [address] [place] [address] 03/17/2023 13:33:13 03/18/2023 15:57:29 Gastroesophageal reflux disease 308392182 K21.9 Status of condition: Exacerbati on/Acute on [...] to state he is not having an SD and just his normal reflux that is [...] Member ID Guarantor Name 03/16/2023 1 [place] [id number] Eligio Qureshi [id number] Eligio Qureshi 03/16/2023 1 [place] [facility] Eligio Qureshi [id number] Eligio Qureshi 03/16/2023 1 *SELF PAY* Eligio Qureshi [id number] Eligio Qureshi Notes Date Note Type Note Provider Name and Address Organization Details Recorded Time 03/17/2023 text/html General HPI Temp late - DHReported by Patient Pt resides in nursing home due to history of depression and schizoaffective [...] has worked in the past. Staff at nursing home report that he refuses most medical treatment and is able to make his own medical decisions. Pt denies current nausea, fever, vomiting, abd pain, changes in bowel habits, dysuria. Is having normal BMs, passing flatus and belching without issue.History mostly obtained from patient, staff with some assistance (meds, medical history). Katharine Vidal NP [address] [place] [address] [place], [place], [address], [place] [facility] 03/17/2023 15:11:38
== END 2025-07-25 11:37 | disposition home or self-care (01) ==
LOC: HO.WFDLDS 11:36
PROVIDERS: PCP Nurse Practitioner Family; Visit Provider Nurse Practitioner Family
DX: E87.1 Hypo-osmolality and hyponatremia (principal); H10.9 Unspecified conjunctivitis; R05.9 Cough, unspecified
CPT/HCPCS: 36415; 80048; 99212

== ENCOUNTER 2025-08-23 10:08 | Outpatient (AMB) | payer MEDICARE, MEDICAID, SELFPAY ==
--- NOTE | 2025-08-23 10:12 | A.OFFVIS_ITS ---
Vital Signs 08/23/25 10:20 Height 6 ft Weight 185 lb BMI 25.1 BP 119/68 Blood Pressure Location Lt brachial Position Sitting Pulse 79 Intake Visit Reasons: Screening Intake Note: Patient new consult for pre Colonoscopy screening. Patient cc: denies any abdominal or bowel issues, here for colonoscopy screening, does not recall when his last colonoscopy was Filter Changing Technician Required: No Accompanied by: Self / Same As Patient Allergies No Known Allergies Allergy (Verified 07/25/25 12:01) Medication List - Last Reconciled 08/23/25 by Rena Harris CNP acetaminophen ER (Tylenol 8 Hour) 650 mg PO Q8H PRN clonazepam mg PO erythromycin 0.5 inches ophthalmic (eye) TID 7 days fexofenadine (Allergy Relief (fexofenadine)) 180 mg PO DAILY olanzapine 20 mg PO BEDTIME olanzapine 10 mg PO BEDTIME oxcarbazepine 150 mg PO BID oxymetazoline 0.05% (Afrin Sinus (oxymetazoline)) 1 spray intranasal Q12H PRN polyethylene glycol 3350 (Miralax) 17 grams PO DAILY sodium chloride 1,000 mg PO DAILY 30 days trazodone 50 mg PO BEDTIME HPI HPI Screening: Details: Patient is a 70-year-old male with PMH of depression, anxiety, schizoaffective affective disorder, hyperlipidemia, CAD. Referred by PCP for pre colonoscopy screening Patient is accompanied by [facility] staff. His last colonoscopy was 20- 30 years ago and was normal. The patient reports having one to two bowel movements daily with the assistance of Miralax. He denies any hematochezia, abdominal pain, nausea, vomiting, heartburn, or dysphagia. His appetite is good and his weight has been stable. The patient has a history of mild, stable normocytic anemia but denies associated symptoms such as fatigue or shortness of breath. His iron levels were checked in March 2024 and were normal. Recent labs showed normal kidney function, and liver function tests were normal in April. Regarding medications, his dose of oxycarbazepine was recently decreased from 300 mg twice a day to 150 mg twice a day by his psychiatrist due to negative side effects. Patient denies: fever/chills, n/v, appetite changes, pyrosis, regurgitation,dysphasia, unintentional wt loss, ab pain or melena/hematochezia. Social hx: -denies ETOH use -denies recreational drug use -former smoker, cessation 30 years ago - family hx as below -denies personal hx of CA -denies significant cardiopulmonary history -tolerated anesthesia in the past without difficulty. [facility] Medical History Hyperkalemia Heart murmur Hepatitis Surgical History H/O hernia repair History of cholecystectomy Family History Mother Cardiovascular disease Father Cardiovascular disease Brother No problems noted. Other Mental health disorder Substance abuse Social History Housing: Assisted Living Facility Alcohol intake: never Patient Tobacco Use Status: Former Tobacco user Tobacco use type: Cigarette e-Cigarette/Vaping Use: Never Used Second Hand Smoke Exposure: No service: Yes Current occupational status: disabled Current occupation: [employer] Current occupational exposures/hazards: No Cognitive needs: No Hearing needs: Yes Vision needs: Yes Review of Systems Const Reports as per HPI ENT Reports as per HPI Card Reports as per HPI Resp Reports as per HPI GI Reports as per HPI Reports as per HPI Physical Exam Vital Signs: Last Vital Signs Pulse 79 08/23/25 10:20 BP 119/68 08/23/25 10:20 BMI result Body Mass Index 25.1 Const General: healthy appearing, no acute distress and well developed Nutritional Appearance: average body habitus Orientation/consciousness: patient oriented x3 HEENT Head: Yes normal to inspection, Yes normocephalic and Yes atraumatic Face and sinus: Yes normal facial exam Eyes General: appearance normal, both eyes and all related structures Neck Neck: Yes normal visual inspection Resp Effort & Inspection: normal respiratory effort, able to speak in complete sentences, no tracheal deviation and symmetric chest movement Cardio Jugular venous distension: no JVD Neuro General: patient oriented x3 Gait exam (Neuro): Normal gait present Psych Appearance: grossly normal Mental Status: mental status grossly normal Speech and movement: Normal speech and movement present Affect: normal affect Attitude: cooperative Thought process: Normal thought process present Thought content: Normal thought content present Insight: Good insight present (Psych) Judgement: Good judgement present (Psych) Assessment & Plan Assessment & Plan (1) Colon cancer screening: Code(s): Z12.11 - Encounter for screening for malignant neoplasm of colon Category: Medical Plan: The patient is a 70-year-old male due for a screening colonoscopy, with his last one performed 20-30 years ago, reproted as normal. - Based on the clinical assessment, no additional workup is required before the procedure. - An order for a screening colonoscopy will be placed. - The scheduling team will contact the patient, with the procedure anticipated for October or November of the new . - The bowel preparation will consist of a full bottle of Miralax mixed with 64 ounces of Gatorade and 4 laxative tablets. - Detailed instructions were provided in a packet, covering the clear liquid diet, avoidance of red, blue, or purple dyes, the need for a ride, and NPO guidelines. - [facility] we will have assistance with the prep - Prescriptions for the prep have been sent to the patient's pharmacy. - A follow-up visit will be scheduled after the procedure to discuss the results. (2) Normocytic anemia: Code(s): D64.9 - Anemia, unspecified Category: Medical Plan: The patient has a stable, mild normocytic anemia of unknown etiology. - He is asymptomatic, and recent iron studies were normal. - The upcoming screening colonoscopy will help evaluate for a potential gastrointestinal source of blood loss. - The patient was advised to report any new symptoms like fatigue or shortness of breath to his primary care provider. - No other specific interventions for the anemia are planned at this time. Plan Follow-up after colonoscopy or sooner as needed Time: I spent a total of 25 minutes on the date of encounter which includes: Preparing to see the patient (reviewed previous documentation, test results and medical history) Performing a medically appropriate exam and/or evaluation Ordering medications, tests, and procedures Documenting clinical information in the health record Orders: Referrals GI Procedure Notification Z12.11 - Encounter for screening for malignant neoplasm of colon Medications: New polyethylene glycol 3350 (Miralax) per colonoscopy prep instructions 238 grams PO ONCE 238 grams 0RF Coding Level of Care Code New Pt Est Pt Level 3 (90369) Patient Type New Diagnoses Colon cancer screening Z12.11 Normocytic anemia D64.9
[2025-08-23 10:20] VITALS: BP 119/68; PULSE 79; BMI 25.1
--- OUTSIDE RECORDS SUMMARY | 2025-08-23 12:22 | XMS_ITS | Clinical Summary ---
Author Organization [facility] Address [address] [address] Phone Care Team Providers Care Tank Driver Name Role Phone Unknown, Unknown Primary Care [...] topic Medical Devices Not on file Insurance [employer]IC [employer]CIAL [place] [employer] [place] [employer] [place] [employer]ERCIAL [address] [place], [place] [id number] GENERIC COMM[employer]CIAL [place] [employer] Care Teams Tank Driver Relationship Specialty Start Date End Date Unknown, Unknown, PCP - General 10/10/23 Additional Source Comments The information contained in this document represents components of the legal health record. It is not the complete legal health record.[facility]
--- OUTSIDE RECORDS SUMMARY | 2025-08-23 12:22 | XMS_ITS | Encounter Summary ---
Author Organization [facility] Address [address] [facility] [address] [place] [phone] Phone Care Team Providers Care Dairy Husbandman Name Role Phone Unknown, Unknown Primary Care Provider Sarahy reed Encounter Details Date Type Department Care Team (Late st Contact Info) Description 10/10/2023 Procedure [facility] [address] [place] [address] Social History Tobacco Use Types Packs/Day Years [...] 10/10/2023 11:00 AM Gina Velázquez RN * [place] Suicide Severity Rating Scale (Screener/Recent Self-Report) Question [...] on filedocumented in this encounter Care Teams Dairy Husbandman Relationship Specialty Start Date End Date Unknown, Unknown, PCP - General 10/10/23 documented as of this encounter Additional Source Comments The information contained in this document represents components of the legal health record. It is not the complete legal health record.[facility]
--- OUTSIDE RECORDS SUMMARY | 2025-08-23 12:22 | XMS_ITS | Clinical Summary ---
Author Organization [facility] Address [address] [place] [address] Phone Care Team Providers Care Touring Production Manager Name Role Phone Physician, No Pcp [...] Date Comments Bipolar disorder (manic depr ession) ([facility] V24, [facility] V28) per assisted paperwork Generalized anxiety disorder per assisted paperwork Social History Tobacco Use Types Packs/Day [...] Orientation Straight 10/17/2024 6: 42 PM EST Last Filed Vital Signs Vital [...] to complete this topic Insurance [facility] Care Teams Touring Production Manager Relationship Specialty Start Date End Date Physician, No Pcp PCP - General 10/17/24
--- OUTSIDE RECORDS SUMMARY | 2025-08-23 12:22 | XMS_ITS | Encounter Summary ---
Author Organization [facility] Address [address] [facility] [address] [place] [phone] Phone Care Team Providers Care Host/Hostess Name Role Phone Unknown, Unknown Primary Care Provider Sarahy reed Encounter Details Date Type Department Care Team (Late st Contact Info) Description 10/10/2023 Procedure [facility] [address] [place] [address] Social History Tobacco Use Types Packs/Day Years [...] 10/10/2023 11:00 AM Gina Velázquez RN * [place] Suicide Severity Rating Scale (Screener/Recent Self-Report) Question [...] on filedocumented in this encounter Care Teams Host/Hostess Relationship Specialty Start Date End Date Unknown, Unknown, PCP - General 10/10/23 documented as of this encounter Additional Source Comments The information contained in this document represents components of the legal health record. It is not the complete legal health record.[facility]
== END 2025-08-23 10:47 | disposition home or self-care (01) ==
LOC: HO.HGI 10:09
PROVIDERS: PCP Nurse Practitioner Family; Visit Provider Nurse Practitioner Family
DX: Z01.818 Encounter for other preprocedural examination (principal); Z12.11 Encounter for screening for malignant neoplasm of colon; D64.9 Anemia, unspecified
CPT/HCPCS: 99024

== ENCOUNTER → 2025-08-23 10:08 | Outpatient (BNVA) | payer MEDICARE, MEDICAID, SELFPAY | PROVIDERS: PCP Nurse Practitioner Family; Visit Provider Nurse Practitioner Family | DX: Z12.11 Encounter for screening for malignant neoplasm of colon (principal); D64.9 Anemia, unspecified | CPT/HCPCS: 99212 ==